=== PATIENT | male | born 1960 | race Caucasian/White ===

== ENCOUNTER 2017-05-20 15:22 | Emergency (ER) | payer MEDICARE ==
--- NOTE | 2017-05-20 15:42 | Emergency Department Record ---
History of Present Illness - General Chief Complaint: Ankle/Foot Injury Stated Complaint: LOW BLOOD SUGAR Time Seen by Provider: 05/20/17 15:31 Source: Patient, RN notes reviewed Mode of Arrival: Ambulatory - History of Present Illness Initial Comments: patient states he doesn't have his lantus insulin because of insurance problems and his toe left great toe toenail fell off 5 days ago and he has onychymocosis and 2 days ago his left great toe drained pus and blood spontaneously and now he has a red streak into his footup to his ankle. the bottom of his left great toe volar pad has a black eschar and skin looks like a blister drained. Patients feet are numb from his diabetes and he used his short acting insulin 14 units prior to coming to the hospital at 3 pm . patient is checking his sugar every 3-4 hours and covering with short acting insulin novolog. Onset/Timin -: Days(s) Type of Injury: Laceration Improves With: Nothing Worsens With: Nothing - Related Data Home Medications Medication Instructions Recorded Confirmed Last Taken Insulin Aspart [Novolog] 1 unit SQ TID 05/20/17 05/20/17 Unknown Allergies Allergy/AdvReac Type Severity Reaction Status Date / Time No Known Allergies Allergy Unverified 05/20/17 14:54 Travel Screening - Travel/Exposure Within Last 30 Days Have you traveled within the last 30 days?: No Review of Systems Reviewed: No additional complaints except as noted below Constitutional: Reports: As per HPI. Denies: Chills, Fever, Malaise, Night sweats, Weakness, Weight change Eyes: Reports: As per HPI. Denies: Eye discharge, Eye pain, Photophobia, Vision change ENT: Reports: As per HPI. Denies: Congestion, Dental pain, Ear pain, Epistaxis , Hearing loss, Throat pain Respiratory: Reports: As per HPI. Denies: Cough, Dyspnea, Hemoptysis, Stridor, Wheezes Cardiovascular: Reports: As per HPI. Denies: Arrhythmia, Chest pain, Dyspnea on exertion, Edema, Murmurs, Orthopnea, Palpitations, Paroxysmal nocturnal dyspnea, Rheumatic Fever, Syncope Endocrine: Reports: As per HPI. Denies: Fatigue, Heat or cold intolerance, Polydipsia, Polyuria Gastrointestinal: Reports: As per HPI. Denies: Abdominal pain, Constipation, Diarrhea, Hematemesis, Hematochezia, Melena, Nausea, Vomiting Genitourinary: Reports: As per HPI. Denies: Dysuria, Frequency, Hematuria, Incontinence, Retention, Testicular pain, Testicular mass, Urgency Musculoskeletal: Reports: As per HPI. Denies: Arthralgia, Back pain, Gout, Joint swelling, Myalgia, Neck pain Skin: Reports: As per HPI, Other (toe is blistered and ulcerated on the volar pad of the left great toe). Denies: Bruising, Change in color, Change in hair/ nails, Lesions, Pruritus, Rash Neurological: Reports: As per HPI. Denies: Abnormal gait, Confusion, Headache, Numbness, Paresthesias, Seizure, Tingling, Tremors, Vertigo, Weakness Psychiatric: Reports: As per HPI. Denies: Anxiety, Auditory hallucinations, Depression, Homicidal thoughts, Suicidal thoughts, Visual hallucinations Hematological/Lymphatic: Reports: As per HPI. Denies: Anemia, Blood Clots, Easy bleeding, Easy bruising, Swollen glands Past Medical History - SOCIAL HISTORY Smoking Status: Never smoker Alcohol Use: Occasional Drug Use: Rare Drug Use Detail:: Marijuana - RESPIRATORY Hx Respiratory Disorders: No - CARDIOVASCULAR Hx Cardio Disorders: No - NEURO Hx Neuro Disorders: No - GI Hx GI Disorders: No - Hx Genitourinary Disorders: No - ENDOCRINE Hx Endocrine Disorders: Yes Hx Diabetes: Yes (DM2) - PSYCH Hx Psych Problems: No - HEMATOLOGY/ONCOLOGY Hx Hematology/Oncology Disorders: No Family Medical History Any Significant Family History?: No Physical Exam - General General Appearance: Alert, Oriented x3, Cooperative, No acute distress - Head Head exam: Normal inspection - Eye Eye exam: Normal appearance, PERRL Pupils: Normal accommodation - ENT ENT exam: Normal exam, Mucous membranes moist, Normal external ear exam, Normal orophraynx, TM's normal bilaterally Ear exam: Normal external inspection. negative: External canal tenderness Nasal Exam: Normal inspection. negative: Discharge, Sinus tenderness Mouth exam: Normal external inspection, Tongue normal Teeth exam: Normal inspection. negative: Dental caries Throat exam: Normal inspection. negative: Tonsillar erythema, Tonsillar exudate - Neck Neck exam: Normal inspection, Full ROM. negative: Tenderness - Respiratory Respiratory exam: Normal lung sounds bilaterally. negative: Respiratory distress - Cardiovascular Cardiovascular Exam: Regular rate, Normal rhythm, Normal heart sounds - GI/Abdominal GI/Abdominal exam: Soft, Normal bowel sounds. negative: Tenderness - Rectal Rectal exam: Deferred - exam: Deferred - Extremities Extremities exam: Full ROM, Normal capillary refill, Other (black eschar on the bottom of the left great toe). negative: Tenderness - Back Back exam: Reports: Normal inspection, Full ROM. Denies: Muscle spasm, Rash noted, Tenderness - Neurological Neurological exam: Alert, Normal gait, Oriented X3, Reflexes normal - Psychiatric Psychiatric exam: Normal affect, Normal mood - Skin Skin exam: Dry, Intact, Normal color, Warm Course discussed case with Dr Lewis and will transfer for infectious disease , ortho or podiatry for his left great toe Medical Decision Making - Data Complexity MDM Data: X-Ray Ordered and/or Reviewed (loose calcium tip of the toe,rule out osteomyletis) - Lab Data Result diagrams: 05/20/17 16:25 05/20/17 16:05 Disposition Clinical Impression: Cellulitis of great toe, left Diabetes mellitus Qualifiers: Diabetes mellitus type: type 2 Diabetes mellitus complication status: with hyperglycemia Diabetes mellitus watermaster insulin use: with watermaster use Qualified Code(s): E11.65 - Type 2 diabetes mellitus with hyperglycemia Osteomyelitis Qualifiers: Osteomyelitis type: acute hematogenous Osteomyelitis location: foot Laterality : left Qualified Code(s): M86.072 - Acute hematogenous osteomyelitis, left ankle and foot Disposition: Acute Care Hospital Transfer Condition: (2) Stable Forms: Patient Portal Access Time of Disposition: 17:06 Quality - Quality Measures Quality Measures: N/A - Blood Pressure Screening Does Patient Have Any of the Following: Active Dx of HTN Blood Pressure Classification: Normal BP Reading Systolic Measurement: 117 Diastolic Measurement: 70 Screening for High Blood Pressure: Patient Exclusion, Hx of HTN [G9744]
[2017-05-20] MEDS ORDERED: 0.9 % SODIUM CHLORIDE 1000ML 1,000 ML IV PRN (15:45)
[2017-05-20] MEDS ORDERED: CLINDAMYCIN 600MG/50ML PREMIX 600 MG/50 ML BAG IVPB ONE (15:50)
[2017-05-20 16:31] LABS: BASO % 0.4 % (0-6); EOS % 5.4 % (0-6); GRAN % 65.1 % (47-80); HEMATOCRIT 37.2 % (42.0-52.0); HEMOGLOBIN 12.1 gm/dl (14.0-18.0); LYMPH % 20.4 % (16-45); MEAN CELL VOLUME 86.7 fl (81-97); MEAN CORPUSCULAR HEMOGLOBIN 28.2 pg (27-33); MEAN CORPUSCULAR HGB CONC 32.5 g/dl (32-36); MEAN PLATELET VOLUME 10.3 fl (7.4-10.4); MONO % 8.7 % (0-9); PLATELET COUNT 369 K/uL (130-400); RED BLOOD COUNT 4.29 M/uL (4.40-5.70); RED CELL DISTRIBUTION WIDTH 13.3 % (11.5-14.5); WHITE BLOOD COUNT W/O DIFF 9.4 K/uL (4.2-12.2)
[2017-05-20 16:41] LABS: BLOOD UREA NITROGEN 19 mg/dL (6-20); C-REACTIVE PROTEIN 3.8 mg/dL (<0.5); EST GLOMERULAR FILTRATION RATE > 60 mL/min
[2017-05-20 16:51] LABS: GLUCOSE,RANDOM 491 mg/dL (74-109)
--- NOTE | 2017-05-21 11:50 | RADIOLOGY REPORT ---
DATE: 05/20/2017 at 4:35 p.m. EXAM: LEFT GREAT TOE. HISTORY: Toe infection. TECHNIQUE: Three views of the left great toe. COMPARISON: None. FINDINGS: There is a slightly curvilinear wire-like density in the soft tissues of the tip of the great toe along the plantar surface consistent with a foreign body of uncertain age or etiology. Clinical correlation is suggested. Mild degenerative arthritis of the first metatarsophalangeal joint. No definite acute fracture or destructive lesion involving the left great toe evident. There is probably some soft tissue swelling present. IMPRESSION: 1. CURVILINEAR WIRE-LIKE FOREIGN BODY ABOUT 9.0 MM IN LENGTH IN THE SOFT TISSUES AT THE TIP OF THE GREAT TOE. CLINICAL CORRELATION IS SUGGESTED DESCRIBED ABOVE. 2. SOME SOFT TISSUE SWELLING. 3. MILD DEGENERATIVE ARTHRITIS AT THE FIRST METATARSOPHALANGEAL JOINT. JOB NUMBER: [id number] MTDD
== END 2017-05-20 17:38 | disposition short-term general hospital (02) ==
LOC: ER 15:22
DX: L03.032 Cellulitis of left toe (principal); M86.172 Other acute osteomyelitis, left ankle and foot; E11.65 Type 2 diabetes mellitus with hyperglycemia; E11.40 Type 2 diabetes mellitus with diabetic neuropathy, unspecified; Z79.4 Long term (current) use of insulin
CPT/HCPCS: 73660; 80048; 85025; 86140; 96374; 99283; 99284

== ENCOUNTER 2017-12-20 11:11 | Inpatient (IN) | payer MEDICARE ==
[2017-12-20] MEDS ORDERED: HUMULIN R 100 UNIT/ML VIAL SC ONE (11:12)
[2017-12-20] MEDS ORDERED: 0.9 % SODIUM CHLORIDE 1,000 ML BAG IV ONE ×2 (11:23→12:11)
[2017-12-20] MEDS ORDERED: ONDANSETRON HCL IV 4 MG/2 ML VIAL IVP ONE (11:23)
--- NOTE | 2017-12-20 11:29 | Emergency Department Record ---
History of Present Illness - General Chief complaint: Vomiting Stated complaint: VOMITING Time Seen by Provider: 12/20/17 11:13 Source: Patient Mode of Arrival: Ambulatory Limitations: No limitations - History of Present Illness Initial comments: 57 yo male presents with nausea and vomiting any time he tries to eat food. The onset was Tuesday morning. He woke then with mild nausea. As soon as he tried to eat breakfast he developed nausea and vomiting. Since then he has been able to keep some fluids down buy as soon as he eats or tries to eat food he vomits. No fever. No diarrhea. He has had bowel movements. No chest pain , shortness of breath, cough, swelling, blood in vomit or stools. He denies any history of abdominal surgery. This morning his symptoms seemed somewhat improved but then he tried to eat and vomited. He states he does feel hungry but even the thought of food makes him vomit. He had a 12 noon appointment at the [facility] but vomited so he was directed to the ED. MD complaint: Nausea, Vomiting -: Days(s) (3) Description of Vomiting: Watery Description of Diarrhea: Water Location: Epigastric Severity: Moderate Quality: Constant Consistency: Constant Improves with: None Worsens with: Eating Associated Symptoms: Loss of appetite, Nausea/vomiting - Related Data Allergies Allergy/AdvReac Type Severity Reaction Status Date / Time No Known Allergies Allergy Unverified 06/27/17 12:15 Review of Systems Constitutional: Reports: Malaise, Weakness. Denies: Chills, Fever Eyes: Denies: Eye discharge, Eye pain, Photophobia, Vision change ENT: Denies: Congestion, Throat pain Respiratory: Denies: Cough, Dyspnea, Hemoptysis, Stridor Cardiovascular: Denies: Chest pain, Dyspnea on exertion, Edema, Palpitations, Syncope Endocrine: Reports: Fatigue. Denies: Polydipsia, Polyuria Gastrointestinal: Reports: Abdominal pain, Nausea, Vomiting. Denies: Constipation, Hematemesis, Hematochezia, Melena Genitourinary: Denies: Dysuria, Frequency, Hematuria Musculoskeletal: Denies: Arthralgia, Back pain, Joint swelling, Myalgia, Neck pain Skin: Denies: Bruising, Change in color, Rash Neurological: Reports: Headache (mild currently). Denies: Numbness, Tremors, Vertigo, Weakness Psychiatric: Denies: Anxiety Hematological/Lymphatic: Denies: Easy bleeding, Easy bruising, Swollen glands Past Medical History - SOCIAL HISTORY Smoking Status: Never smoker Drug Use: Rare Drug Use Detail:: Marijuana - RESPIRATORY Hx Respiratory Disorders: No - CARDIOVASCULAR Hx Cardio Disorders: No - NEURO Hx Neuro Disorders: No - GI Hx GI Disorders: No - Hx Genitourinary Disorders: No - ENDOCRINE Hx Endocrine Disorders: Yes Hx Diabetes: Yes (DM2) - PSYCH Hx Psych Problems: No - HEMATOLOGY/ONCOLOGY Hx Hematology/Oncology Disorders: No Physical Exam - General General Appearance: Alert, Oriented x3, Cooperative, No acute distress Limitations: No limitations - Head Head exam: Normal inspection - Eye Eye exam: Normal appearance, PERRL. negative: Conjunctival injection, Periorbital swelling, Scleral icterus - ENT ENT exam: Normal exam, Mucous membranes dry, Normal orophraynx Ear exam: Normal external inspection Nasal Exam: Normal inspection Mouth exam: Normal external inspection Teeth exam: Normal inspection Throat exam: Normal inspection - Neck Neck exam: Normal inspection, Full ROM. negative: Lymphadenopathy, Tenderness - Respiratory Respiratory exam: Normal lung sounds bilaterally. negative: Respiratory distress - Cardiovascular Cardiovascular Exam: Regular rate, Normal rhythm, Normal heart sounds - GI/Abdominal GI/Abdominal exam: Soft, Tenderness (mild epigastric tenderness). negative: Distended, Guarding, Rebound, Rigid - Rectal Rectal exam: Deferred - exam: Deferred - Extremities Extremities exam: Normal inspection, Full ROM, Normal capillary refill. negative: Pedal edema, Tenderness - Back Back exam: Denies: CVA tenderness (R), CVA tenderness (L) - Neurological Neurological exam: Alert, Oriented X3 - Psychiatric Psychiatric exam: Normal affect, Normal mood - Skin Skin exam: Dry, Intact, Normal color, Warm. negative: Cyanosis, Diaphoretic, Erythema, Mottled Course - Reevaluation(s) Reevaluation #1: 12/20/17 11:55 The CBC was reviewed. WBC is 13 The pH is normal at 7.40 12/20/17 12:02 The CMP and Lipase were reviewed sodium is 129 potassium 5.2 HCO3 is low at 15 AG is 31 Glucose is 321 BUN is 26 CR is 1.3 with a baseline of 1-1.1 Lipase is normal 12/20/17 12:08 On recheck the patient denies any pain. His abdomen is very soft and is not tender on palpation. I explained that he is dehydrated with electrolyte abnormalities. His pH is normal so he is not acidotic at this point but clearly dehydrated with abnormal HCO3, AG and Acetone. 12/20/17 12:10 12/20/17 12:14 The case was discussed with Caroline Aldrich of the family medicine service The patient will be admitted for hydrate, nausea control, electrolyte and glucose monitoring. Medical Decision Making - Lab Data Result diagrams: 12/20/17 11:35 12/20/17 11:35 Disposition Disposition: Admit Clinical Impression: Dehydration, Hyperglycemia, Hyponatremia, Hyperkalemia Disposition: Still a Patient at [facility] Decision to Admit: Admit from ER Decision to Admit Date: 12/20/17 Decision to Admit Time: 12:05 Condition: (1) Good Forms: Patient Portal Access Time of Disposition: 12:05 Quality - Quality Measures Quality Measures: N/A - Blood Pressure Screening Does Patient Have Any of the Following: No Blood Pressure Classification: Normal BP Reading Systolic Measurement: 106 Diastolic Measurement: 65 Screening for High Blood Pressure: < Normal BP, F/U Not Required > [G8783]
[2017-12-20 11:39] LABS: BASO % 0.4 % (0-6); EOS % 0.2 % (0-6); GRAN % 74.8 % (47-80); HEMATOCRIT 42.5 % (42.0-52.0); HEMOGLOBIN 14.2 gm/dl (14.0-18.0); LYMPH % 18.4 % (16-45); MEAN CELL VOLUME 86.4 fl (81-97); MEAN CORPUSCULAR HEMOGLOBIN 28.9 pg (27-33); MEAN CORPUSCULAR HGB CONC 33.4 g/dl (32-36); MEAN PLATELET VOLUME 10.6 fl (7.4-10.4); MONO % 6.2 % (0-9); PLATELET COUNT 377 K/uL (130-400); RED BLOOD COUNT 4.92 M/uL (4.40-5.70); RED CELL DISTRIBUTION WIDTH 13.9 % (11.5-14.5); WHITE BLOOD COUNT W/O DIFF 13.1 K/uL (4.2-12.2)
[2017-12-20 11:53] LABS: BLOOD UREA NITROGEN 26 mg/dL (6-20)
[2017-12-20 11:54] LABS: CREATININE 1.3 mg/dL (0.7-1.2); EST GLOMERULAR FILTRATION RATE > 60 mL/min; TOTAL PROTEIN 7.6 g/dL (6.6-8.7)
[2017-12-20 11:56] LABS: GLUCOSE,RANDOM 321 mg/dL (74-109)
[2017-12-20 11:59] LABS: ALB/GLOB RATIO 1.5 (1.1-1.8); ALBUMIN 4.6 g/dL (4.0-5.0); ALKALINE PHOSPHATASE 96 U/L (40-129); ALT/SGPT 12 U/L (<41); AST/SGOT 15 U/L (10.0-50.0); LIPASE 10 U/L (13-60)
[2017-12-20 12:04] LABS: ACETONE,SERUM POSITIVE (NEGATIVE)
[2017-12-20] MEDS ORDERED: HUMULIN R 100 UNIT/ML VIAL SQ ONE (12:11)
[2017-12-20] MEDS ORDERED: ONDANSETRON HCL IV 4 MG/2 ML VIAL IVP PRN (13:45)
[2017-12-20] MEDS ORDERED: ACETAMINOPHEN 500 MG TABLET PO PRN (13:45)
[2017-12-20] MEDS ORDERED: PNEUM 23-VAL ADULT IM ONE (14:00)
[2017-12-20] MEDS ORDERED: PNEUM 13-VAL/PF 0.5 ML IM ONE (14:00)
[2017-12-20 14:21] LABS: BLOOD UREA NITROGEN 25 mg/dL (6-20); CREATININE 1.2 mg/dL (0.7-1.2); EST GLOMERULAR FILTRATION RATE > 60 mL/min; GLUCOSE,RANDOM 297 mg/dL (74-109)
[2017-12-20] MEDS: 0.9 % SODIUM CHLORIDE 1000ML 1,000 ML IV PRN ×2 (14:30→21:43)
[2017-12-20] MEDS: GABAPENTIN 300 MG CAPSULE PO SCH ×2 (17:29→21:55)
[2017-12-20] MEDS: HUMULIN R 100 UNIT/ML VIAL SQ SCH (17:33)
--- NOTE | 2017-12-20 22:47 | History & Physical ---
History of Present Illness - Date of Service Date of Service for History & Physical: 12/20/17 - History of Present Illness Admitting Diagnosis: dehydration, hyperglycemia, hyponatremia, vomiting History of Present Illness: Mr. Colunga is a 57 year-old male who presented to the ED the afternoon of 12/20/17 with complaint of nausea and vomiting. His symptoms began 3 days ago. He woke up Tuesday morning with mild nausea. As soon as he tried to eat breakfast he developed nausea and vomiting. Since then he has been able to keep some fluids down but as soon as he eats or tries to eat food he vomits. No fever. No diarrhea. He has had bowel movements unchanged fro his norm. No chest pain, shortness of breath, cough, swelling, blood in vomit or stools. He denies any history of abdominal surgery. This morning his symptoms seemed somewhat improved but then he tried to eat and vomited. He states he does feel hungry but even the thought of food makes him vomit. He was supposed to have his diabetes appt. today with Erika Brown NP, and he was advised to go to the ED. Past medical history includes insulin-dependent diabetes mellitus and occasional marijuana use. In the ED, his vital signs were stable. His CBC revealed a WBC of 13. CMP revealed a pH of 7.4, Na of 129, K of 5.2, HC03 of 15, AG of 31, glucose of 321 , BUN 26, and creatinine of 1.3 (baseline of 1-1.1). He continued to deny pain , abdomen was soft and nontender to palpation. He was admitted for dehydration , hyperglycemia, hyponatremia, and hyperkalemia. Planning IV fluids, antiemetics, and lab monitoring. 12/20/17 1630: Pt. is resting comfortably in bed. He reports feeling much improved at this time. He continues to deny abdominal pain. He states that he is hungry and interested in trying some jello. Plan to advance ADA diet as tolerated. Will continue IV hydration and lab monitoring- will check A1C with am labs. Travel Screening - Travel/Exposure Within Last 30 Days Have you traveled within the last 30 days?: No - Travel/Exposure Within Last Year Have you traveled outside the [place] in the last year?: No - Additonal Travel Details Have you been exposed to anyone with a communicable illness?: No - Travel Symptoms Symptom Screening: None Review of Systems Constitutional: Reports: Malaise, Weakness. Denies: Chills, Fever Eyes: Denies: Eye discharge, Eye pain, Photophobia, Vision change ENT: Denies: Congestion, Throat pain Respiratory: Denies: Cough, Dyspnea, Hemoptysis, Stridor Cardiovascular: Denies: Chest pain, Dyspnea on exertion, Edema, Palpitations, Syncope Endocrine: Reports: Fatigue. Denies: Polydipsia, Polyuria Gastrointestinal: Reports: Abdominal pain, Nausea, Vomiting. Denies: Constipation, Hematemesis, Hematochezia, Melena Genitourinary: Denies: Dysuria, Frequency, Hematuria Musculoskeletal: Denies: Arthralgia, Back pain, Joint swelling, Myalgia, Neck pain Skin: Denies: Bruising, Change in color, Rash Neurological: Reports: Headache (mild currently). Denies: Numbness, Tremors, Vertigo, Weakness Psychiatric: Denies: Anxiety Hematological/Lymphatic: Denies: Easy bleeding, Easy bruising, Swollen glands Past Medical History - SOCIAL HISTORY Smoking Status: Never smoker Alcohol Use: Occasional Drug Use: Occasional Drug Use Detail:: Marijuana - RESPIRATORY Hx Respiratory Disorders: No - CARDIOVASCULAR Hx Cardio Disorders: No - NEURO Hx Neuro Disorders: No - GI Hx GI Disorders: No - Hx Genitourinary Disorders: No - ENDOCRINE Hx Endocrine Disorders: Yes Hx Diabetes: Yes (DM2) - PSYCH Hx Psych Problems: No - HEMATOLOGY/ONCOLOGY Hx Hematology/Oncology Disorders: No Family Medical History Any Significant Family History?: No H&P Meds/Allergies - Allergies Allergies: Allergies Allergy/AdvReac Type Severity Reaction Status Date / Time No Known Allergies Allergy Unverified 06/27/17 12:15 - Active Medications Active Medications: Current Medications Acetaminophen (Tylenol 500mg Tab) 1,000 mg PO Q6H PRN PRN Reason: PAIN/TEMP Aspirin (Ecotrin (Ec)) 81 mg PO DAILY CATHERINE Atorvastatin Calcium (Lipitor) 10 mg PO DAILY CATHERINE Gabapentin (Neurontin) 300 mg PO TID CATHERINE Last Admin: 12/20/17 21:55 Dose: 300 mg Sodium Chloride () 1,000 mls @ 125 mls/hr IV .Q8H PRN PRN Reason: LARGE VOLUME IV Last Admin: 12/20/17 21:43 Dose: 125 mls/hr Insulin Human Regular (Humulin R) 1 unit SQ TIDAC [facility]; Protocol Last Admin: 12/20/17 17:33 Dose: 2 unit Ondansetron HCl (Zofran) 4 mg IVP Q4H PRN PRN Reason: NAUSEA Physical Exam - Vital Signs Vital Signs: Vital Signs - Last 24 Hrs Temp Pulse Pulse Resp BP BP Pulse Ox 12/20/17 16:21 97.7 F 95 H 18 138/75 100 12/20/17 15:41 95 H 18 12/20/17 13:45 97.5 F L 95 H 18 140/77 100 12/20/17 12:55 97.4 F L 88 18 134/50 99 12/20/17 11:14 97.8 F 100 H 24 106/65 100 - General General Appearance: Alert, Oriented x3, Cooperative, No acute distress Limitations: No limitations - Head Head exam: Normal inspection - Eye Eye exam: Normal appearance, PERRL. negative: Conjunctival injection, Periorbital swelling, Scleral icterus - ENT ENT exam: Normal exam, Mucous membranes dry, Normal orophraynx Ear exam: Normal external inspection Nasal Exam: Normal inspection Mouth exam: Normal external inspection Teeth exam: Normal inspection Throat exam: Normal inspection - Neck Neck exam: Normal inspection, Full ROM. negative: Lymphadenopathy, Tenderness - Respiratory Respiratory exam: Normal lung sounds bilaterally. negative: Respiratory distress - Cardiovascular Cardiovascular Exam: Regular rate, Normal rhythm, Normal heart sounds - GI/Abdominal GI/Abdominal exam: Soft. negative: Distended, Guarding, Rebound, Rigid, Tenderness - Rectal Rectal exam: Deferred - exam: Deferred - Extremities Extremities exam: Normal inspection, Full ROM, Normal capillary refill. negative: Pedal edema, Tenderness - Back Back exam: Denies: CVA tenderness (R), CVA tenderness (L) - Neurological Neurological exam: Alert, Oriented X3 - Psychiatric Psychiatric exam: Normal affect, Normal mood - Skin Skin exam: Dry, Intact, Normal color, Warm. negative: Cyanosis, Diaphoretic, Erythema, Mottled Results - Labs Result Diagrams: 12/20/17 11:35 12/20/17 14:00 Labs Last 24 Hours: Laboratory Results - last 24 hr 12/20/17 12/20/17 12/20/17 11:35 11:35 14:00 WBC 13.1 H RBC 4.92 Hgb 14.2 Hct 42.5 MCV 86.4 MCH 28.9 MCHC 33.4 RDW 13.9 Plt Count 377 MPV 10.6 H Gran % 74.8 Lymphocytes % 18.4 Monocytes % 6.2 Eosinophils % 0.2 Basophils % 0.4 VBG pH 7.40 Sodium 129 L 131 L Potassium 5.2 H 4.9 H Chloride 83 L 90 L Carbon Dioxide 15.0 L 13.0 L Anion Gap 31.0 H 28.0 H BUN 26 H 25 H Creatinine 1.3 H 1.2 Estimated GFR > 60 > 60 POC Glucose Random Glucose 321 H 297 H Calcium 10.1 H 8.7 Total Bilirubin 0.80 AST 15 ALT 12 Alkaline Phosphatase 96 Total Protein 7.6 Albumin 4.6 Globulin 3.0 Albumin/Globulin Ratio 1.5 Lipase 10 L Acetone, Qual Positive 12/20/17 17:00 WBC RBC Hgb Hct MCV MCH MCHC RDW Plt Count MPV Gran % Lymphocytes % Monocytes % Eosinophils % Basophils % VBG pH Sodium Potassium Chloride Carbon Dioxide Anion Gap BUN Creatinine Estimated GFR POC Glucose Cancelled Random Glucose Calcium Total Bilirubin AST ALT Alkaline Phosphatase Total Protein Albumin Globulin Albumin/Globulin Ratio Lipase Acetone, Qual VTE H&P Assessment - Risk for VTE Risk for VTE: Yes Risk Level: Very Low Risk Assessment Date: 12/20/17 Risk Assessment Time: 22:48 VTE Orders Placed or Will Be Placed: Yes Plan - Inpatient Certification Inpatient Certification: Admit to inpatient care: Based on my medical assessment, after consideration of patient's risk factors (age, co-morbidities and patient presenting symptoms and acuity), I expect that this patient will remain in the hospital greater than or equal to two midnights and that the services needed warrant inpatient care because: Patient Risk Factors: [uncontrolled IDDM] Estimated length of stay: [48-96 hours] The patient may reasonably be expected to be discharged or transferred to a hospital within 96 hours after admission to [facility]. Services needed: [IV hydration, antiemetics, lab monitoring] Post hospital care (if known): [] I certify that my determination is in accordance with my understanding of Medicare requirements for reasonable and necessary inpatient services. 12/20/17 22:48 - Detailed Diagnosis and Plan (1) Dehydration Current Visit: Yes Status: Acute Base Code: E86.0 - DEHYDRATION Comment: : -Dehydration secondary to nausea and vomiting for 2.5 days -Will continue IV hydration -CBC and CMP ordered for tomorrow morning to reassess hyponatremia and hyperkalemia -Pt. is now tolerating advanced diet (ADA) with no nausea/vomiting (2) Hyperglycemia Current Visit: Yes Status: Acute Base Code: R73.9 - HYPERGLYCEMIA, UNSPECIFIED Comment: 12/20/17: -Glucose 321 upon admission -SS insulin ordered -Will continue to monitor, A1C also ordered for am labs tomorow (3) At risk for deep venous thrombosis Current Visit: Yes Status: Acute Base Code: Z91.89 - OTH PERSONAL RISK FACTORS, NOT ELSEWHERE CLASSIFIED Comment: 12/20/17: -40mg SC lovenox will be ordered for DVT prophylaxis if stay greater than 24 hours (4) Full code status Current Visit: Yes Status: Acute Base Code: Z78.9 - OTHER SPECIFIED HEALTH STATUS Comment: 12/20/17: -Pt. is a full code
[2017-12-21] MEDS ORDERED: PNEUM 23-VAL ADULT IM ONE (06:11)
[2017-12-21 06:59] LABS: BASO % 0.4 % (0-6); EOS % 1.8 % (0-6); GRAN % 62.1 % (47-80); HEMATOCRIT 37.4 % (42.0-52.0); LYMPH % 27.8 % (16-45); MEAN CELL VOLUME 88.2 fl (81-97); MEAN CORPUSCULAR HEMOGLOBIN 28.3 pg (27-33); MEAN CORPUSCULAR HGB CONC 32.1 g/dl (32-36); MEAN PLATELET VOLUME 10.8 fl (7.4-10.4); MONO % 7.9 % (0-9); PLATELET COUNT 248 K/uL (130-400); RED BLOOD COUNT 4.24 M/uL (4.40-5.70)
[2017-12-21 07:19] LABS: ALB/GLOB RATIO 1.6 (1.1-1.8); ALBUMIN 3.6 g/dL (4.0-5.0); ALKALINE PHOSPHATASE 73 U/L (40-129); ALT/SGPT 11 U/L (<41); AST/SGOT 12 U/L (10.0-50.0); BLOOD UREA NITROGEN 19 mg/dL (6-20); CREATININE 1.2 mg/dL (0.7-1.2); EST GLOMERULAR FILTRATION RATE > 60 mL/min; GLUCOSE,RANDOM 387 mg/dL (74-109); TOTAL PROTEIN 5.8 g/dL (6.6-8.7)
[2017-12-21] MEDS: HUMULIN R 100 UNIT/ML VIAL SQ SCH ×3 (08:04→17:44)
[2017-12-21] MEDS: ATORVASTATIN 20 MG TABLET PO SCH (09:25)
[2017-12-21] MEDS: ASPIRIN 81 MG TABEC PO SCH (09:25)
[2017-12-21] MEDS: GABAPENTIN 300 MG CAPSULE PO SCH ×3 (09:25→22:40)
[2017-12-21] MEDS: METOCLOPRAMIDE 10 MG TABLET PO SCH ×3 (10:56→22:40)
[2017-12-21] MEDS: CALCIUM CARBONATE 500 MG TAB.CHEW PO SCH ×4 (10:56→22:40)
--- NOTE | 2017-12-21 12:56 | Physician Progress Note ---
Subjective - Date Date of Physician Progress Note: 12/21/17 - Subjective Subjective Comment: 12/21/17 1000: Pt. reported worsening nausea and some vomiting this morning prior to eating breakfast. He states that his nausea came on very intensely and then he vomited a small amount of white-foamy mucus. He states that water alone has not been worsening his nausea. Plan to r/o gastroparesis- will try reglan 10mg qid. GI consulted- will be in specialty clinic tomorrow morning. Labs slightly improved from yesterday, BUN and creatinine returned to normal limits. Labs ordered for 1400, will recheck cbc, cmp, and added tsh and b12. Will continue IV fluids and highly recommended pt. to try small frequent meals instead of few large meals. Objective - Vital Signs Vital Signs: Vital Signs - Last 24 Hrs Temp Pulse Pulse Resp BP BP Pulse Ox 12/21/17 11:37 97.9 F 85 18 121/67 99 12/21/17 09:00 50 L 16 12/21/17 03:44 97.7 F 50 L 16 181/80 99 12/21/17 00:00 99.1 F 85 16 134/79 98 12/20/17 21:00 16 12/20/17 16:21 97.7 F 95 H 18 138/75 100 12/20/17 15:41 95 H 18 12/20/17 13:45 97.5 F L 95 H 18 140/77 100 12/20/17 12:55 97.4 F L 88 18 134/50 99 - General General Appearance: Alert, Oriented x3, Cooperative, No acute distress Limitations: No limitations - Head Head exam: Normal inspection - Eye Eye exam: Normal appearance, PERRL. negative: Conjunctival injection, Periorbital swelling, Scleral icterus - ENT ENT exam: Normal exam, Mucous membranes dry, Normal orophraynx Ear exam: Normal external inspection Nasal Exam: Normal inspection Mouth exam: Normal external inspection Teeth exam: Normal inspection Throat exam: Normal inspection - Neck Neck exam: Normal inspection, Full ROM. negative: Lymphadenopathy, Tenderness - Respiratory Respiratory exam: Normal lung sounds bilaterally. negative: Respiratory distress - Cardiovascular Cardiovascular Exam: Regular rate, Normal rhythm, Normal heart sounds - GI/Abdominal GI/Abdominal exam: Soft. negative: Distended, Guarding, Rebound, Rigid, Tenderness - Rectal Rectal exam: Deferred - exam: Deferred - Extremities Extremities exam: Normal inspection, Full ROM, Normal capillary refill. negative: Pedal edema, Tenderness - Back Back exam: Denies: CVA tenderness (R), CVA tenderness (L) - Neurological Neurological exam: Alert, Oriented X3 - Psychiatric Psychiatric exam: Normal affect, Normal mood - Skin Skin exam: Dry, Intact, Normal color, Warm. negative: Cyanosis, Diaphoretic, Erythema, Mottled Assessment and Plan - Assessment and Plan (1) Dehydration Current Visit: Yes Status: Acute Base Code: E86.0 - DEHYDRATION Comment: : -Dehydration secondary to nausea and vomiting for 2.5 days -Will continue IV hydration -CBC and CMP ordered for tomorrow morning to reassess hyponatremia and hyperkalemia -Pt. is now tolerating advanced diet (ADA) with no nausea/vomiting (2) Hyperglycemia Current Visit: Yes Status: Acute Base Code: R73.9 - HYPERGLYCEMIA, UNSPECIFIED Comment: 12/20/17: -Glucose 321 upon admission -SS insulin ordered -Will continue to monitor, A1C also ordered for am labs tomorow (3) At risk for deep venous thrombosis Current Visit: Yes Status: Acute Base Code: Z91.89 - OTH PERSONAL RISK FACTORS, NOT ELSEWHERE CLASSIFIED Comment: 12/20/17: -40mg SC lovenox will be ordered for DVT prophylaxis if stay greater than 24 hours (4) Full code status Current Visit: Yes Status: Acute Base Code: Z78.9 - OTHER SPECIFIED HEALTH STATUS Comment: 12/20/17: -Pt. is a full code Results - Labs Result Diagrams: 12/21/17 06:05 12/21/17 06:05 Labs Last 24 Hours: Laboratory Results - last 24 hr 12/20/17 12/20/17 12/20/17 14:00 17:00 22:02 WBC RBC Hgb Hct MCV MCH MCHC RDW Plt Count MPV Gran % Lymphocytes % Monocytes % Eosinophils % Basophils % Sodium 131 L Potassium 4.9 H Chloride 90 L Carbon Dioxide 13.0 L Anion Gap 28.0 H BUN 25 H Creatinine 1.2 Estimated GFR > 60 POC Glucose Cancelled 230 H Random Glucose 297 H Hemoglobin A1c Calcium 8.7 Total Bilirubin AST ALT Alkaline Phosphatase Total Protein Albumin Globulin Albumin/Globulin Ratio 12/21/17 12/21/17 12/21/17 01:45 06:05 06:05 WBC 9.0 RBC 4.24 L Hgb 12.0 L Hct 37.4 L MCV 88.2 MCH 28.3 MCHC 32.1 RDW 14.0 Plt Count 248 MPV 10.8 H Gran % 62.1 Lymphocytes % 27.8 Monocytes % 7.9 Eosinophils % 1.8 Basophils % 0.4 Sodium Cancelled 132 L Potassium Cancelled 4.9 H Chloride Cancelled 90 L Carbon Dioxide Cancelled 14.0 L Anion Gap Cancelled 28.0 H BUN Cancelled 19 Creatinine Cancelled 1.2 Estimated GFR Cancelled > 60 POC Glucose Random Glucose Cancelled 387 H Hemoglobin A1c Calcium Cancelled 8.2 L Total Bilirubin 0.50 AST 12 ALT 11 Alkaline Phosphatase 73 Total Protein 5.8 L Albumin 3.6 L Globulin 2.2 Albumin/Globulin Ratio 1.6 12/21/17 12/21/17 06:05 11:37 WBC RBC Hgb Hct MCV MCH MCHC RDW Plt Count MPV Gran % Lymphocytes % Monocytes % Eosinophils % Basophils % Sodium Potassium Chloride Carbon Dioxide Anion Gap BUN Creatinine Estimated GFR POC Glucose 273 H Random Glucose Hemoglobin A1c 10.60 H Calcium Total Bilirubin AST ALT Alkaline Phosphatase Total Protein Albumin Globulin Albumin/Globulin Ratio DVT/PE Assessment - Risk for VTE Risk for VTE: No Risk Level: Very Low Risk Assessment Date: 12/20/17 Risk Assessment Time: 22:48 VTE Orders Placed or Will Be Placed: Yes - Active Medicaitons Current Medications: Current Medications Acetaminophen (Tylenol 500mg Tab) 1,000 mg PO Q6H PRN PRN Reason: PAIN/TEMP Aspirin (Ecotrin (Ec)) 81 mg PO DAILY [facility] Last Admin: 12/21/17 09:25 Dose: 81 mg Atorvastatin Calcium (Lipitor) 10 mg PO DAILY [facility] Last Admin: 12/21/17 09:25 Dose: 10 mg Calcium Carbonate/Glycine (Tums) 500 mg PO Q4H [facility] Last Admin: 12/21/17 10:56 Dose: 500 mg Gabapentin (Neurontin) 300 mg PO TID [facility] Last Admin: 12/21/17 09:25 Dose: 300 mg Sodium Chloride () 1,000 mls @ 125 mls/hr IV .Q8H PRN PRN Reason: LARGE VOLUME IV Last Admin: 12/20/17 21:43 Dose: 125 mls/hr Insulin Human Regular (Humulin R) 1 unit SQ TIDAC [facility]; Protocol Last Admin: 12/21/17 12:03 Dose: 8 unit Metoclopramide HCl (Reglan) 10 mg PO QIDACHS [facility] Last Admin: 12/21/17 10:56 Dose: 10 mg Ondansetron HCl (Zofran) 4 mg IVP Q4H PRN PRN Reason: NAUSEA Last Admin: 12/21/17 07:42 Dose: 4 mg AMI Plan - Labs Result Diagrams: 12/21/17 06:05 12/21/17 06:05
[2017-12-21] MEDS: 0.9 % SODIUM CHLORIDE 1000ML 1,000 ML IV PRN ×2 (13:34→23:00)
[2017-12-21 15:31] LABS: ALB/GLOB RATIO 1.8 (1.1-1.8); ALBUMIN 3.6 g/dL (4.0-5.0); ALKALINE PHOSPHATASE 68 U/L (40-129); ALT/SGPT 11 U/L (<41); AST/SGOT 12 U/L (10.0-50.0); BLOOD UREA NITROGEN 18 mg/dL (6-20); CREATININE 1.2 mg/dL (0.7-1.2); EST GLOMERULAR FILTRATION RATE > 60 mL/min; GLUCOSE,RANDOM 257 mg/dL (74-109); TOTAL PROTEIN 5.6 g/dL (6.6-8.7)
[2017-12-22] MEDS: CALCIUM CARBONATE 500 MG TAB.CHEW PO SCH ×3 (06:03→12:22)
[2017-12-22 06:16] LABS: BLOOD UREA NITROGEN 19 mg/dL (6-20); CREATININE 1.2 mg/dL (0.7-1.2); EST GLOMERULAR FILTRATION RATE > 60 mL/min; TOTAL PROTEIN 6.3 g/dL (6.6-8.7)
[2017-12-22 06:18] LABS: ALB/GLOB RATIO 1.5 (1.1-1.8); ALBUMIN 3.8 g/dL (4.0-5.0); ALKALINE PHOSPHATASE 74 U/L (40-129); ALT/SGPT 12 U/L (<41); AST/SGOT 13 U/L (10.0-50.0); CHOLESTEROL 181 mg/dL (<200); HDL CHOLESTEROL 36 mg/dL (40-60); TRIGLYCERIDES 171 mg/dL (<150); VLDL CHOLESTEROL 34 mg/dL (10.00-40.00)
[2017-12-22] MEDS: HUMULIN R 100 UNIT/ML VIAL SQ SCH ×3 (06:19→12:24)
[2017-12-22 06:27] LABS: GLUCOSE,RANDOM 563 mg/dL (74-109)
[2017-12-22] MEDS ORDERED: LEVEMIR FLEXTOUCH 100 UNIT/ML INSULIN PEN SQ ONE (09:02)
[2017-12-22] MEDS: ATORVASTATIN 20 MG TABLET PO SCH (12:20)
[2017-12-22] MEDS: ASPIRIN 81 MG TABEC PO SCH (12:21)
[2017-12-22] MEDS: GABAPENTIN 300 MG CAPSULE PO SCH (12:21)
[2017-12-22] MEDS: METOCLOPRAMIDE 10 MG TABLET PO SCH ×3 (12:21→12:23)
[2017-12-22] MEDS ORDERED: ONDANSETRON 4 MG ODT TABLET SL PRN (13:13)
--- NOTE | 2017-12-22 13:19 | Discharge Summary ---
Providers Discharge Summary Date: 12/22/17 Date of admission: 12/20/17 13:31 Expected Date of Discharge: 12/22/17 Attending physician: CHERIE HAMILTON Primary care physician: Erika Brown N.P. Consults: Consult Orders 12/21/17 12:29 Consult NOW Consulting Provider: ALEIDA HANNON Physician Instructions: Reason For Exam: nausea, vomiting, r/o gastroparesis Physical Exam - Vital Signs Vital Signs: Vital Signs - Last 24 Hrs Temp Pulse Resp BP BP Pulse Ox 12/22/17 12:15 97.9 F 83 18 143/70 100 12/22/17 09:00 98 H 18 12/22/17 04:00 98 H 18 146/76 98 12/21/17 21:00 81 18 12/21/17 20:00 98.7 F 81 18 124/69 97 12/21/17 13:42 97.9 F 121/67 - General General Appearance: Alert, Oriented x3, Cooperative, No acute distress Limitations: No limitations - Head Head exam: Normal inspection - Eye Eye exam: Normal appearance, PERRL. negative: Conjunctival injection, Periorbital swelling, Scleral icterus - ENT ENT exam: Normal exam, Mucous membranes dry, Normal orophraynx Ear exam: Normal external inspection Nasal Exam: Normal inspection Mouth exam: Normal external inspection Teeth exam: Normal inspection Throat exam: Normal inspection - Neck Neck exam: Normal inspection, Full ROM. negative: Lymphadenopathy, Tenderness - Respiratory Respiratory exam: Normal lung sounds bilaterally. negative: Respiratory distress - Cardiovascular Cardiovascular Exam: Regular rate, Normal rhythm, Normal heart sounds - GI/Abdominal GI/Abdominal exam: Soft. negative: Distended, Guarding, Rebound, Rigid, Tenderness - Rectal Rectal exam: Deferred - exam: Deferred - Extremities Extremities exam: Normal inspection, Full ROM, Normal capillary refill. negative: Pedal edema, Tenderness - Back Back exam: Denies: CVA tenderness (R), CVA tenderness (L) - Neurological Neurological exam: Alert, Oriented X3 - Psychiatric Psychiatric exam: Normal affect, Normal mood - Skin Skin exam: Dry, Intact, Normal color, Warm. negative: Cyanosis, Diaphoretic, Erythema, Mottled Hospitalization - Hospitalization Admission Diagnosis: dehydration, hyperglycemia, hyponatremia, vomiting - Problem List/Discharge Diagnosis (1) Dehydration Status: Acute Base Code: E86.0 - DEHYDRATION Comment: 12/22/17: -Dehydration secondary to nausea and vomiting for 3.5 days -Pt. is tolerating clear fluids and labs improved (2) Hyperglycemia Status: Acute Base Code: R73.9 - HYPERGLYCEMIA, UNSPECIFIED Comment: 12/22/17 : -Pt. will resume home diabetes medications for discharge (3) Vomiting Status: Acute Base Code: R11.10 - VOMITING, UNSPECIFIED Comment: 12/22/17: -GI consult and scope this morning- found gastric and duodenal ulcers and esophagitis -Will start 40mg pantoprazole per Dr. Hannon -Will d/c home with zofran prn (4) At risk for deep venous thrombosis Status: Acute Base Code: Z91.89 - OTH PERSONAL RISK FACTORS, NOT ELSEWHERE CLASSIFIED Comment: 12/22/17: -Will not continue antithrombolic therapy post discharge- pt to return to normal level of activity (5) Full code status Status: Acute Base Code: Z78.9 - OTHER SPECIFIED HEALTH STATUS Comment: 12/22: -Pt. is a full code - Disposition Discharge home, self-care - Hospitalization Course Disposition: Home, Self-Care Hospital Course: Mr. Colunga is a 57 year-old male who presented to the ED the afternoon of 12/20/17 with complaint of nausea and vomiting. His symptoms began 3 days ago. He woke up Tuesday morning with mild nausea. As soon as he tried to eat breakfast he developed nausea and vomiting. Since then he has been able to keep some fluids down but as soon as he eats or tries to eat food he vomits. No fever. No diarrhea. He has had bowel movements unchanged fro his norm. No chest pain, shortness of breath, cough, swelling, blood in vomit or stools. He denies any history of abdominal surgery. This morning his symptoms seemed somewhat improved but then he tried to eat and vomited. He states he does feel hungry but even the thought of food makes him vomit. He was supposed to have his diabetes appt. today with Erika Brown NP, and he was advised to go to the ED. Past medical history includes insulin-dependent diabetes mellitus and occasional marijuana use. In the ED, his vital signs were stable. His CBC revealed a WBC of 13. CMP revealed a pH of 7.4, Na of 129, K of 5.2, HC03 of 15, AG of 31, glucose of 321 , BUN 26, and creatinine of 1.3 (baseline of 1-1.1). He continued to deny pain , abdomen was soft and nontender to palpation. He was admitted for dehydration , hyperglycemia, hyponatremia, and hyperkalemia. Planning IV fluids, antiemetics, and lab monitoring. 12/20/17 1630: Pt. is resting comfortably in bed. He reports feeling much improved at this time. He continues to deny abdominal pain. He states that he is hungry and interested in trying some jello. Plan to advance ADA diet as tolerated. Will continue IV hydration and lab monitoring- will check A1C with am labs. 12/21/17: Nausea and vomiting restarted, will consult GI. Reglan 10mg qid started for possible gastroparesis. 12/22/17: Dr. Hannon ([facility]) consulted and EGD performed this morning- found gastric and duodenal ulcers and esophagitis. Biopsy was obtained to test for H. pylori. Per Dr. Hannon, recommend starting 40mg pantoprazole daily and f/u in 6 weeks for repeat EGD to assess healing and screening colonoscopy. Will discharge home this afternoon. Abnormal Labs: Abnormal Lab Results 12/20/17 12/20/17 12/20/17 Range/Units 11:35 11:35 14:00 WBC 13.1 H (4.2-12.2) K/uL RBC (4.40-5.70) M/uL Hgb (14.0-18.0) gm/dl Hct (42.0-52.0) % MPV 10.6 H (7.4-10.4) fl Sodium 129 L 131 L (136-145) mmol/L Potassium 5.2 H 4.9 H (3.4-4.5) mmol/L Chloride 83 L 90 L (98-107) mmol/L Carbon Dioxide 15.0 L 13.0 L (22-29) mmol/L Anion Gap 31.0 H 28.0 H (7-16) BUN 26 H 25 H (6-20) mg/dL Creatinine 1.3 H (0.7-1.2) mg/dL POC Glucose (70-110) mg/dL Random Glucose 321 H 297 H (74-109) mg/dL Hemoglobin A1c (4.0-6.00) % Calcium 10.1 H (8.6-10.0) mg/dL Total Protein (6.6-8.7) g/dL Albumin (4.0-5.0) g/dL Triglycerides (<150) mg/dL LDL Cholesterol [place] (0-100) mg/dL HDL Cholesterol (40-60) mg/dL Lipase 10 L (13-60) U/L 12/20/17 12/21/17 12/21/17 Range/Units 22:02 06:05 06:05 WBC (4.2-12.2) K/uL RBC 4.24 L (4.40-5.70) M/uL Hgb 12.0 L (14.0-18.0) gm/dl Hct 37.4 L (42.0-52.0) % MPV 10.8 H (7.4-10.4) fl Sodium 132 L (136-145) mmol/L Potassium 4.9 H (3.4-4.5) mmol/L Chloride 90 L (98-107) mmol/L Carbon Dioxide 14.0 L (22-29) mmol/L Anion Gap 28.0 H (7-16) BUN (6-20) mg/dL Creatinine (0.7-1.2) mg/dL POC Glucose 230 H (70-110) mg/dL Random Glucose 387 H (74-109) mg/dL Hemoglobin A1c (4.0-6.00) % Calcium 8.2 L (8.6-10.0) mg/dL Total Protein 5.8 L (6.6-8.7) g/dL Albumin 3.6 L (4.0-5.0) g/dL Triglycerides (<150) mg/dL LDL Cholesterol Me[place]urd (0-100) mg/dL HDL Cholesterol (40-60) mg/dL Lipase (13-60) U/L 12/21/17 12/21/17 12/21/17 Range/Units 06:05 11:37 14:15 WBC (4.2-12.2) K/uL RBC (4.40-5.70) M/uL Hgb (14.0-18.0) gm/dl Hct (42.0-52.0) % MPV (7.4-10.4) fl Sodium (136-145) mmol/L Potassium 4.6 H (3.4-4.5) mmol/L Chloride 95 L (98-107) mmol/L Carbon Dioxide 18.0 L (22-29) mmol/L Anion Gap 24.0 H (7-16) BUN (6-20) mg/dL Creatinine (0.7-1.2) mg/dL POC Glucose 273 H (70-110) mg/dL Random Glucose 257 H (74-109) mg/dL Hemoglobin A1c 10.60 H (4.0-6.00) % Calcium 8.4 L (8.6-10.0) mg/dL Total Protein 5.6 L (6.6-8.7) g/dL Albumin 3.6 L (4.0-5.0) g/dL Triglycerides (<150) mg/dL LDL Cholesterol Measurd (0-100) mg/dL HDL Cholesterol (40-60) mg/dL Lipase (13-60) U/L 12/21/17 12/21/17 12/22/17 Range/Units 17:00 22:00 05:58 WBC (4.2-12.2) K/uL RBC (4.40-5.70) M/uL Hgb (14.0-18.0) gm/dl Hct (42.0-52.0) % MPV (7.4-10.4) fl Sodium (136-145) mmol/L Potassium 5.0 H (3.4-4.5) mmol/L Chloride 93 L (98-107) mmol/L Carbon Dioxide 16.0 L (22-29) mmol/L Anion Gap 28.0 H (7-16) BUN (6-20) mg/dL Creatinine (0.7-1.2) mg/dL POC Glucose 132 H 308 H (70-110) mg/dL Random Glucose 563 H* (74-109) mg/dL Hemoglobin A1c (4.0-6.00) % Calcium (8.6-10.0) mg/dL Total Protein 6.3 L (6.6-8.7) g/dL Albumin 3.8 L (4.0-5.0) g/dL Triglycerides 171 H (<150) mg/dL LDL Cholesterol Measurd 128.0 H (0-100) mg/dL HDL Cholesterol 36 L (40-60) mg/dL Lipase (13-60) U/L 12/22/17 12/22/17 12/22/17 Range/Units 06:00 10:20 12:15 WBC (4.2-12.2) K/uL RBC (4.40-5.70) M/uL Hgb (14.0-18.0) gm/dl Hct (42.0-52.0) % MPV (7.4-10.4) fl Sodium (136-145) mmol/L Potassium (3.4-4.5) mmol/L Chloride (98-107) mmol/L Carbon Dioxide (22-29) mmol/L Anion Gap (7-16) BUN (6-20) mg/dL Creatinine (0.7-1.2) mg/dL POC Glucose 487 H* 280 H 158 H (70-110) mg/dL Random Glucose (74-109) mg/dL Hemoglobin A1c (4.0-6.00) % Calcium (8.6-10.0) mg/dL Total Protein (6.6-8.7) g/dL Albumin (4.0-5.0) g/dL Triglycerides (<150) mg/dL LDL Cholesterol Measurd (0-100) mg/dL HDL Cholesterol (40-60) mg/dL Lipase (13-60) U/L Condition at Discharge: (2) Stable VTE Discharge VTE Reason For No Overlap Therapy: Not Indicated Discharge Medications - Discharge Medications Prescriptions: Ondansetron [Zofran Odt] 4 mg SL Q8H PRN #20 tab.rapdis PRN Reason: Nausea/Vomiting Pantoprazole Sodium [Protonix] 40 mg PO DAILYAC #30 tablet. Home Medications: Ambulatory Orders Aspirin [Aspir 81] 81 mg PO QD tab 03/15/17 [Last Taken 12/18/17] Ondansetron [Zofran Odt] 4 mg SL Q8H PRN #20 tab.rapdis 12/22/17 [Last Taken Unknown] Pantoprazole Sodium [Protonix] 40 mg PO DAILYAC #30 tablet. 12/22/17 [Last Taken Unknown] Discharge Plan - Discharge Instructions Activity at Discharge: Increase Activity as Tolerated Diet at Discharge: Advance to Usual Diet Instructions: Ondansetron (By mouth), Pantoprazole (By mouth), Peptic Ulcer (DC ), Diet for Stomach Ulcers and Gastritis (GEN), Type 2 Diabetes in Adults (DC), Acute Nausea and Vomiting (DC), Esophagitis (DC) Additional Instructions: Start Pantoprazole 40mg daily Zofran 4mg up to three times per day for nausea/vomiting Continue to slowly advance diet as tolerated Follow up with Dr. Hannon in 6-8 weeks for EGD and colonoscopy Return to the ED if you notice any worsening symptoms, blood in stool or vomit, or for any chest pain Quality Measures - Quality Measures Quality Measures: Documentation of Current Medications in Medical Record, Screening for High Blood Pressure and F/U Documented - Current Medications Quality Measure: Measure #130: Documentation of Current Medications Documentation of Current Medications: <Current Medications Documented/Reviewed> [G8427] - Blood Pressure Screening Quality Measure: Screening for High Blood Pressure and Follow-Up Documented Does Patient Have Any of the Following: No Blood Pressure Classification: Pre-Hypertensive BP Reading Systolic Measurement: 121 Diastolic Measurement: 67 Screening for High Blood Pressure: < Pre-Hypertensive BP, F/U Documented > [ G8950] Pre-Hypertensive Follow-up Interventions: Follow-up with rescreen every year. - Elder Abuse Suspicion Index EASI Reference Information: Judy LEONARD, Chauncey C, Madeleine D, Alex Francisco.Development and validation of a tool to assist physicians identification of elder abuse: The Elder Abuse Suspicion Index (EASI ). Journal of Elder Abuse and Neglect, 2008; 20 (3): 276-300.
[2017-12-22] MEDS ORDERED: HUMULIN R 100 UNIT/ML VIAL SC ONE (14:04)
[2017-12-22] MEDS ORDERED: PROPOFOL 10 MG/ML VIAL IV ONE (14:04)
[2017-12-22] MEDS ORDERED: LIDOCAINE 2% MDV (20MG/ML) 20ML VIAL IV ONE (14:04)
[2017-12-22] MEDS ORDERED: FENTANYL PF 100MCG/2ML VIAL IV ONE (14:04)
[2017-12-23] MEDS ORDERED: PANTOPRAZOLE SODIUM 40 MG TABLET PO SCH (07:00)
--- NOTE | 2017-12-23 12:40 | Medical Records Consult ---
DATE OF CONSULTATION: 12/22/2017 REASON FOR CONSULTATION: Nausea and vomiting. HISTORY OF PRESENT ILLNESS: The patient is a 57-year-old gentleman who presented with several-day history of nausea and vomiting. He states that this was very abrupt in onset. He has not had prior issues. He denies any early satiety, melena, hematochezia, or coffee-ground emesis. He has never had any similar issues in the past. He has not had any previous upper GI evaluations. He presented to the emergency department and was felt to be dehydrated and was subsequently admitted for intravenous fluids and antiemetics. He was feeling better approximately 48 hours later but then had some recurrent nausea and vomiting. GI has seen him for his recurrent issues. He does have a history of diabetes mellitus insulin dependent for 10 years. He has never been diagnosed with gastroparesis. PAST MEDICAL HISTORY: Diabetes mellitus, hypercholesterolemia, and questionable mild hypertension. ALLERGIES: No known drug allergies. SOCIAL HISTORY: He denies tobacco use. Uses alcohol very occasionally. Uses marijuana very occasionally. REVIEW OF SYSTEMS: Noted and documented on 12/20/2017 by nurse practitioner Caroline Aldrich. No other additions other than that noted in the History of Present Illness. FAMILY HISTORY: Noncontributory. There is no known family history of colon cancer. PAST SURGICAL HISTORY: Noncontributory. HOME MEDICATIONS: 1. Acetaminophen. 2. Enteric-coated aspirin. 3. Lipitor. 4. Neurontin. 5. Insulin. 6. Ondansetron. 7. Lisinopril. PHYSICAL EXAMINATION: VITALS: 97.9, 121/67, pulse 81, respirations 18. GENERAL: He is awake, alert, oriented x3. Nontoxic in appearance. Appears to be in no acute distress. He appears his stated age. He is quite pleasant. HEENT: Head is atraumatic, normocephalic. No temporal muscle wasting was noted. Extraocular movements are intact. No conjunctival injection or scleral icterus appreciable. SKIN: Warm and dry. No jaundice appreciable. NECK: Supple. Trachea midline. Thyroid nonpalpable. HEART: Regular rate and rhythm without murmur. LUNGS: Clear to auscultation without rhonchi, rales, or wheezing. Normal to percussion. ABDOMEN: Soft. Positive bowel sounds. No guarding, rebound, or rigidity. Tenderness palpable. No hepatosplenomegaly. EXTREMITIES: No clubbing, cyanosis, or edema. LABORATORY DATA: White count 9.0, hemoglobin 12.0, hematocrit 37.4, platelets 248. Sodium 137, potassium 4.6, chloride 95, CO2 18, BUN 18, creatinine 1.2. Liver chemistries were unremarkable. Lipase was 10.0. TSH was 0.94. B12 of 1219. IMPRESSION: 1. Nausea and vomiting of unclear etiology perhaps related to viral enteritis. Perhaps could be related to gastroparesis but also could be occult peptic ulcer disease or gastric outlet obstruction which seems less likely. 2. Diabetes mellitus by history. 3. Questionable hypertension. RECOMMENDATION: I would suggest the patient undergo an upper endoscopy to further evaluation his upper GI tract. At some point he should also undergo a colonoscopy. Further recommendations will be forthcoming once endoscopy results are available. CC: MD Erika Fernandez NP MTDD
--- NOTE | 2017-12-23 13:10 | Operative Note ---
DATE OF SURGERY: 12/22/2017 OPERATION: ESOPHAGOGASTRODUODENOSCOPY with biopsy. PREOPERATIVE DIAGNOSIS: Recurrent nausea and vomiting. POSTOPERATIVE DIAGNOSES: 1. Duodenal ulcers. 2. Erosive gastritis. PROCEDURE: After informed consent was obtained from the patient, he was placed in the left lateral decubitus position in the endoscopy suite, sedated and monitored by the department of anesthesia. Once sedated, a well-lubricated [id number] gastroscope was placed in the posterior oropharynx and under direct visualization passed to the proximal esophagus. The endoscope was advanced through the proximal, mid, and distal esophagus. The GE junction demonstrated some erosive changes perhaps from recurrent nausea and vomiting and retching. No other strictures, varices, mass lesions, or irregularity was noted. The gastric body and antrum were inspected and demonstrated erosive and superficial ulcerative changes in the antrum. The duodenal bulb and sweep demonstrated multiple superficial ulcerations. J-turn views of the proximal stomach were unremarkable. The endoscope was straightened. Antral biopsies were obtained. The endoscope was removed from the patient with no new findings noted. RECOMMENDATIONS: I would suggest the patient start a proton pump inhibitor such as pantoprazole 40 mg daily. He can increase his diet as tolerated. He should undergo repeat upper endoscopy to assess ulcer healing. That upper endoscopy can be performed in 6 weeks. At that time, I would also recommend a colonoscopy, as he has not had a screening exam and is above the age of initial screening. As always, thank you for allowing me to participate in the healthcare of your patients. CC: SIDDHARTH Miguel
== END 2017-12-22 14:05 | disposition home or self-care (01) | DRG 392 ==
LOC: ER 11:11 → MEDSURG 13:31 → UNDODISIN 16:15
PROVIDERS: ADMIT Internal Medicine; ATTEND Internal Medicine
DX: R11.11 Vomiting without nausea (principal); E87.1 Hypo-osmolality and hyponatremia; E86.0 Dehydration; R73.9 Hyperglycemia, unspecified; E11.9 Type 2 diabetes mellitus without complications; Z79.4 Long term (current) use of insulin
CPT/HCPCS: 82800; 83690; 85025; 80053; 82009; J2405; J1815; 36416; 80048; 80061; 82607; 82948; 83036; 84443; 96360; 96361; 96372; 96374; 99223; 99233; 99239; 99285; J7030

== ENCOUNTER 2019-03-13 15:25 | Emergency (ER) | payer MEDICAID, MEDICARE ==
[2019-03-13] MEDS ORDERED: 0.9 % SODIUM CHLORIDE 1,000 ML BAG IV ONE ×2 (15:48→17:00)
[2019-03-13] MEDS ORDERED: HUMULIN R 100 UNIT/ML VIAL SQ ONE ×2 (15:48→17:00)
[2019-03-13 15:59] LABS: ABSOLUTE NEUTROPHIL COUNT 7.69; BASO % 0.4 % (0-6); EOS % 2.3 % (0-6); HEMATOCRIT 41.5 % (42.0-52.0); HEMOGLOBIN 13.7 gm/dl (14.0-18.0); LYMPH % 18.6 % (16-45); MEAN CELL VOLUME 86.3 fl (81-97); MEAN PLATELET VOLUME 11.4 fl (7.4-10.4); MONO % 7.7 % (0-9); PLATELET COUNT 232 K/uL (130-400); RED BLOOD COUNT 4.81 M/uL (4.40-5.70); RED CELL DISTRIBUTION WIDTH 13.6 % (11.5-14.5); WHITE BLOOD COUNT W/O DIFF 10.8 K/uL (4.2-12.2)
[2019-03-13 16:03] LABS: MEAN CORPUSCULAR HEMOGLOBIN 28.4 pg (27-33)
[2019-03-13 16:08] LABS: BLOOD UREA NITROGEN 35 mg/dL (6-20); CREATININE 1.4 mg/dL (0.7-1.2); EST GLOMERULAR FILTRATION RATE 55 mL/min
[2019-03-13 16:09] LABS: TOTAL PROTEIN 6.8 g/dL (6.6-8.7)
[2019-03-13 16:14] LABS: ALB/GLOB RATIO 1.8 (1.1-1.8); ALBUMIN 4.4 g/dL (4.0-5.0); ALT/SGPT 23 U/L (<41); AST/SGOT 14 U/L (10.0-50.0)
[2019-03-13 16:22] LABS: GLUCOSE,RANDOM 588 mg/dL (74-109)
[2019-03-13 16:27] LABS: ACETONE,SERUM SMALL (NEGATIVE)
[2019-03-13 16:41] LABS: URINE APPEARANCE CLEAR; URINE BILIRUBIN NEGATIVE (NEGATIVE); URINE BLOOD NEGATIVE (NEGATIVE); URINE COLOR YELLOW; URINE KETONE 15 mg/dL (NEGATIVE); URINE LEUKOCYTE ESTERASE NEGATIVE (NEGATIVE); URINE NITRITE NEGATIVE (NEGATIVE); URINE PROTEIN NEGATIVE (NEGATIVE); URINE UROBILINOGEN 0.2 E.U./dL (0.20 - 1.00)
[2019-03-13 16:44] LABS: URINE GLUCOSE (UA) >=1000 mg/dL (NEGATIVE)
[2019-03-13 17:30] LABS: ALKALINE PHOSPHATASE 85 U/L (40-129)
[2019-03-13] MEDS ORDERED: HUMULIN 70/30 KWIKPEN 100 UNIT/ML SQ ONE (18:21)
--- NOTE | 2019-03-13 18:49 | Emergency Department Record ---
History of Present Illness - General Chief complaint: Hypergylcemia Stated complaint: HYPERGLYCEMIA Time Seen by Provider: 03/13/19 15:44 Source: Patient Mode of Arrival: Ambulatory Limitations: No limitations - History of Present Illness Initial comments: pt ran out of his insulin last week. he thinks he'll be able to pick it up tomorrow. he states he had a lot of sneezing so he knew his bs was high. pt has had some vomiting as well MD Complaint: Lack of energy -: Days(s) Location: Generalized Severity: Moderate Improves with: None Worsens with: None Associated Symptoms: Confusion, Loss of appetite, Nausea/vomiting - [place] Coma Scale Eye Response: (4) Open spontaneously Motor Response: (6) Obeys commands Verbal Response: (5) Oriented [place] Total: 15 - Related Data Home Medications Medication Instructions Recorded Confirmed Last Taken Gabapentin [Neurontin] 600 mg PO TID 03/13/19 03/13/19 Unknown Insulin Detemir [Levemir] 16 unit SQ BID 03/13/19 03/13/19 Unknown Allergies Allergy/AdvReac Type Severity Reaction Status Date / Time No Known Allergies Allergy not taking Verified 03/13/19 17:04 Travel Screening - Travel/Exposure Within Last 30 Days Have you traveled within the last 30 days?: No Review of Systems Reviewed: No additional complaints except as noted below Constitutional: Reports: As per HPI, Weakness. Denies: Chills, Fever, Malaise, Night sweats, Weight change Eyes: Reports: As per HPI. Denies: Eye discharge, Eye pain, Photophobia, Vision change ENT: Reports: As per HPI. Denies: Congestion, Dental pain, Ear pain, Epistaxis, Hearing loss, Throat pain Respiratory: Reports: As per HPI. Denies: Cough, Dyspnea, Hemoptysis, Stridor, Wheezes Cardiovascular: Reports: As per HPI. Denies: Arrhythmia, Chest pain, Dyspnea on exertion, Edema, Murmurs, Orthopnea, Palpitations, Paroxysmal nocturnal dyspnea, Rheumatic Fever, Syncope Endocrine: Reports: As per HPI. Denies: Fatigue, Heat or cold intolerance, Polydipsia, Polyuria Gastrointestinal: Reports: As per HPI, Nausea, Vomiting. Denies: Abdominal pain, Constipation, Diarrhea, Hematemesis, Hematochezia, Melena Genitourinary: Reports: As per HPI. Denies: Dysuria, Frequency, Hematuria, Incontinence, Retention, Testicular pain, Testicular mass, Urgency Musculoskeletal: Reports: As per HPI. Denies: Arthralgia, Back pain, Gout, Joint swelling, Myalgia, Neck pain Skin: Reports: As per HPI. Denies: Bruising, Change in color, Change in hair/nails, Lesions, Pruritus, Rash Neurological: Reports: As per HPI. Denies: Abnormal gait, Confusion, Headache, Numbness, Paresthesias, Seizure, Tingling, Tremors, Vertigo, Weakness Psychiatric: Reports: As per HPI. Denies: Anxiety, Auditory hallucinations, Depression, Homicidal thoughts, Suicidal thoughts, Visual hallucinations Hematological/Lymphatic: Reports: As per HPI. Denies: Anemia, Blood Clots, Easy bleeding, Easy bruising, Swollen glands Past Medical History - SOCIAL HISTORY Smoking Status: Never smoker Alcohol Use: None Drug Use: Occasional Drug Use Detail:: Marijuana - RESPIRATORY Hx Respiratory Disorders: No - CARDIOVASCULAR Hx Cardio Disorders: Yes Comment:: on cholesterol rx - NEURO Hx Neuro Disorders: Yes Hx Neuropathy: Yes (feet) - GI Hx GI Disorders: No Hx Ulcer: Yes (11/2017) - Hx Genitourinary Disorders: No - ENDOCRINE Hx Endocrine Disorders: Yes Hx Diabetes: Yes (DM2) - MUSCULOSKELETAL Hx Musculoskeletal Disorders: No - PSYCH Hx Psych Problems: No - HEMATOLOGY/ONCOLOGY Hx Hematology/Oncology Disorders: No Family Medical History Any Significant Family History?: Yes Hx HTN: Brother/Sister Hx Seizures: Brother/Sister Physical Exam - General General Appearance: Alert, Oriented x3, Cooperative, Mild distress - Head Head exam: Normal inspection - Eye Eye exam: Normal appearance, PERRL, EOMI Pupils: Normal accommodation - ENT ENT exam: Normal exam, Mucous membranes dry, Normal external ear exam, Normal orophraynx Ear exam: Normal external inspection. negative: External canal tenderness Nasal Exam: Normal inspection. negative: Discharge, Sinus tenderness Mouth exam: Normal external inspection, Tongue normal Teeth exam: Normal inspection. negative: Dental caries Throat exam: Normal inspection. negative: Tonsillar erythema, Tonsillar exudate - Neck Neck exam: Normal inspection, Full ROM. negative: Tenderness - Respiratory Respiratory exam: Normal lung sounds bilaterally. negative: Respiratory distress - Cardiovascular Cardiovascular Exam: Regular rate, Normal rhythm, Normal heart sounds - GI/Abdominal GI/Abdominal exam: Soft, Normal bowel sounds. negative: Tenderness - Rectal Rectal exam: Deferred - exam: Deferred - Extremities Extremities exam: Normal inspection, Full ROM, Normal capillary refill. negative: Tenderness - Back Back exam: Reports: Normal inspection, Full ROM. Denies: Muscle spasm, Rash noted, Tenderness - Neurological Neurological exam: Alert, CN II-XII intact, Normal gait, Oriented X3 - Psychiatric Psychiatric exam: Normal affect, Normal mood - Skin Skin exam: Dry, Intact, Normal color, Warm Course Vital Signs 03/13/19 03/13/19 03/13/19 15:33 16:08 16:41 Temperature 97.9 F Pulse Rate 83 Pulse Rate [ 75 68 Pulse Ox Probe] Respiratory 18 20 18 Rate Blood Pressure 90/55 Blood Pressure 85/59 101/62 [Left Arm] Pulse Ox 97 96 97 03/13/19 18:29 Temperature Pulse Rate Pulse Rate [ 69 Pulse Ox Probe] Respiratory 18 Rate Blood Pressure Blood Pressure 120/68 [Left Arm] Pulse Ox 100 - Reevaluation(s) Reevaluation #1: 03/13/19 19:16 pt feels much better. given a pen for home. d/w annia Medical Decision Making - Lab Data Result diagrams: 03/13/19 15:45 03/13/19 15:45 Lab Results 03/13/19 03/13/19 03/13/19 Range/Units 15:34 15:45 15:45 WBC 10.8 (4.2-12.2) K/uL RBC 4.81 (4.40-5.70) M/uL Hgb 13.7 L (14.0-18.0) gm/dl Hct 41.5 L (42.0-52.0) % MCV 86.3 (81-97) fl MCH 28.4 (27-33) pg MCHC 33.0 (32-36) g/dl RDW 13.6 (11.5-14.5) % Plt Count 232 (130-400) K/uL MPV 11.4 H (7.4-10.4) fl Gran % 71.0 (47-80) % Lymphocytes % 18.6 (16-45) % Monocytes % 7.7 (0-9) % Eosinophils % 2.3 (0-6) % Basophils % 0.4 (0-6) % Absolute Neutrophils 7.69 VBG pH 7.35 (7.33-7.43) Sodium 130 L (136-145) mmol/L Potassium 4.4 (3.4-4.5) mmol/L Chloride 89 L (98-107) mmol/L Carbon Dioxide 25.0 (22-29) mmol/L Anion Gap 16.0 (7-16) BUN 35 H (6-20) mg/dL Creatinine 1.4 H (0.7-1.2) mg/dL Estimated GFR 55 mL/min POC Glucose 573 H* (70-110) mg/dL Random Glucose 588 H* (74-109) mg/dL Calcium 9.5 (8.6-10.0) mg/dL Total Bilirubin 0.40 (0.2-1.0) mg/dL AST 14 (10.0-50.0) U/L ALT 23 (<41) U/L Alkaline Phosphatase 85 (40-129) U/L Total Protein 6.8 (6.6-8.7) g/dL Albumin 4.4 (4.0-5.0) g/dL Globulin 2.4 (1.4-4.8) gm/dL Albumin/Globulin Ratio 1.8 (1.1-1.8) Urine Color Urine Appearance Urine pH (5.0-8.0) Ur Specific [place] (1.002-1.030) Urine Protein (NEGATIVE) Urine Glucose (UA) (NEGATIVE) Urine Ketones (NEGATIVE) Urine Blood (NEGATIVE) Urine Nitrite (NEGATIVE) Urine Bilirubin (NEGATIVE) Urine Urobilinogen (0.20 - 1.00) E.U./dL Ur Leukocyte Esterase (NEGATIVE) Acetone, Qual Small (NEGATIVE) 03/13/19 03/13/19 03/13/19 Range/Units 16:30 16:56 18:11 WBC (4.2-12.2) K/uL RBC (4.40-5.70) M/uL Hgb (14.0-18.0) gm/dl Hct (42.0-52.0) % MCV (81-97) fl MCH (27-33) pg MCHC (32-36) g/dl RDW (11.5-14.5) % Plt Count (130-400) K/uL MPV (7.4-10.4) fl Gran % (47-80) % Lymphocytes % (16-45) % Monocytes % (0-9) % Eosinophils % (0-6) % Basophils % (0-6) % Absolute Neutrophils VBG pH (7.33-7.43) Sodium (136-145) mmol/L Potassium (3.4-4.5) mmol/L Chloride (98-107) mmol/L Carbon Dioxide (22-29) mmol/L Anion Gap (7-16) BUN (6-20) mg/dL Creatinine (0.7-1.2) mg/dL Estimated GFR mL/min POC Glucose 392 H 327 H (70-110) mg/dL Random Glucose (74-109) mg/dL Calcium (8.6-10.0) mg/dL Total Bilirubin (0.2-1.0) mg/dL AST (10.0-50.0) U/L ALT (<41) U/L Alkaline Phosphatase (40-129) U/L Total Protein (6.6-8.7) g/dL Albumin (4.0-5.0) g/dL Globulin (1.4-4.8) gm/dL Albumin/Globulin Ratio (1.1-1.8) Urine Color Yellow Urine Appearance Clear Urine pH 5.5 (5.0-8.0) Ur Specific [place] <= 1.005 (1.002-1.030) Urine Protein Negative (NEGATIVE) Urine Glucose (UA) >=1000 mg/dl H (NEGATIVE) Urine Ketones 15 mg/dl H (NEGATIVE) Urine Blood Negative (NEGATIVE) Urine Nitrite Negative (NEGATIVE) Urine Bilirubin Negative (NEGATIVE) Urine Urobilinogen 0.2 (0.20 - 1.00) E.U./dL Ur Leukocyte Esterase Negative (NEGATIVE) Acetone, Qual (NEGATIVE) Disposition Disposition: Discharge Clinical Impression: Hyperglycemia, Hyperglycemia due to type 1 diabetes mellitus Disposition: Home, Self-Care Condition: (1) Good Instructions: Diabetic Hyperglycemia (ED) Additional Instructions: follow up with family doctor. return sooner if worse. push fluids. monitor sugars. use pen as directed Quality - Quality Measures Quality Measures: N/A - Blood Pressure Screening Does Patient Have Any of the Following: No Blood Pressure Classification: Normal BP Reading Systolic Measurement: 90 Diastolic Measurement: 55 Screening for High Blood Pressure: < Normal BP, F/U Not Required > [[id number]]
[2019-03-13] MEDS ORDERED: LEVEMIR FLEXTOUCH 100 UNIT/ML INSULIN PEN SQ ONE (18:52)
[2019-03-14] MEDS ORDERED: HUMULIN R 100 UNIT/ML VIAL SQ SCH (07:30)
== END 2019-03-13 19:43 | disposition home or self-care (01) ==
LOC: ER 15:25
DX: R41.0 Disorientation, unspecified (principal); E08.65 Diabetes mellitus due to underlying condition with hyperglycemia; T38.3X6A Underdosing of insulin and oral hypoglycemic [antidiabetic] drugs, initial encounter; R42 Dizziness and giddiness; R11.2 Nausea with vomiting, unspecified; R06.7 Sneezing; Z79.4 Long term (current) use of insulin
CPT/HCPCS: 36416; 80053; 81003; 82009; 82800; 82948; 85025; 96360; 96372; 99284; J7030

== ENCOUNTER 2019-06-15 13:07 | Inpatient (IN) | payer MEDICARE ==
[2019-06-15] MEDS ORDERED: 0.9 % SODIUM CHLORIDE 1,000 ML BAG IV ONE ×2 (13:20→14:09)
[2019-06-15] MEDS ORDERED: ONDANSETRON HCL IV 4 MG/2 ML VIAL IV ONE (13:20)
--- NOTE | 2019-06-15 13:26 | Emergency Department Record ---
History of Present Illness - General Chief complaint: Vomiting Stated complaint: VOMITING Time Seen by Provider: 06/15/19 13:16 Source: Patient Mode of Arrival: Ambulatory Limitations: No limitations - History of Present Illness Initial comments: The patient is here due to a 5 day hx of frequent nausea, vomiting and loose watery stools. The patient states he has vomited 3 times today and does have some mild abdominal cramping. He also has had some chest aching for the last day also. There has been weakness with intermittent SOB at times. The patient is a brittle Type I diabetic and states his blood sugars have not been high. MD complaint: Diarrhea, Nausea, Vomiting Onset/Timin -: Days(s) - Related Data Allergies Allergy/AdvReac Type Severity Reaction Status Date / Time No Known Allergies Allergy not taking Unverified 05/14/19 09:56 Review of Systems Constitutional: Reports: Malaise. Denies: Chills, Fever Eyes: Denies: Eye discharge ENT: Denies: Congestion Respiratory: Denies: Cough, Dyspnea Cardiovascular: Reports: Chest pain. Denies: Arrhythmia Endocrine: Reports: Fatigue Gastrointestinal: Reports: Diarrhea, Nausea, Vomiting. Denies: Hematemesis Genitourinary: Denies: Dysuria Musculoskeletal: Denies: Arthralgia Neurological: Denies: Abnormal gait Past Medical History - SOCIAL HISTORY Smoking Status: Never smoker Drug Use: Occasional Drug Use Detail:: Marijuana - RESPIRATORY Hx Respiratory Disorders: No - CARDIOVASCULAR Hx Cardio Disorders: Yes Comment:: on cholesterol rx - NEURO Hx Neuro Disorders: Yes Hx Neuropathy: Yes (feet) - GI Hx GI Disorders: No Hx Ulcer: Yes (11/2017) - Hx Genitourinary Disorders: No - ENDOCRINE Hx Endocrine Disorders: Yes Hx Diabetes: Yes (DM2) - MUSCULOSKELETAL Hx Musculoskeletal Disorders: No - PSYCH Hx Psych Problems: No - HEMATOLOGY/ONCOLOGY Hx Hematology/Oncology Disorders: No Family Medical History Hx HTN: Brother/Sister Hx Seizures: Brother/Sister Physical Exam - General General Appearance: Alert, Oriented x3, Cooperative, Mild distress - Head Head exam: Atraumatic - Eye Eye exam: Normal appearance, PERRL - ENT Throat exam: Normal inspection. negative: Tonsillar erythema, Tonsillar exudate - Neck Neck exam: Normal inspection, Full ROM. negative: Tenderness - Respiratory Respiratory exam: Normal lung sounds bilaterally. negative: Respiratory distress - Cardiovascular Cardiovascular Exam: Regular rate, Normal rhythm, Normal heart sounds. negative: Diastolic murmur - GI/Abdominal GI/Abdominal exam: Soft, Normal bowel sounds. negative: Guarding, Rebound, Rigid, Tenderness - Extremities Extremities exam: Normal inspection, Full ROM, Normal capillary refill. negative: Tenderness - Neurological Neurological exam: Alert. negative: Motor sensory deficit - Skin Skin exam: negative: Rash Course - Reevaluation(s) Reevaluation #1: The patient is doing better at this time. He is breathing easier and denies any CP, SOB, or AP. The patient is still having some nausea. I did discuss the case with Dr. Nixon and he did accept the patient for admission. 06/15/19 14:26 Reevaluation #2: The patient is doing a lot better at this time. He is breathing normally and states the nausea is gone. There is no CP, SOB, or AP at this time. His vitals are all normal also. The patient was seen in the ER by Dr. Nixon and given the OK for admission. 06/15/19 15:17 Medical Decision Making - Data Complexity MDM Data: Labs Ordered and/or Reviewed, X-Ray Ordered and/or Reviewed, EKG Ordered and/or Reviewed - Lab Data Result diagrams: 06/15/19 13:36 06/15/19 14:56 - EKG Data -: EKG Interpreted by Me EKG: No Acute Changes, Normal EKG - Radiology Data Radiology results: Report reviewed (CXR: Neg per Rad.) Disposition Disposition: Admit Clinical Impression: DKA (diabetic ketoacidoses) Qualifiers: Diabetes mellitus type: other specified (including TARAS) Diabetes mellitus complication detail: without coma Qualified Code(s): E13.10 - Other specified diabetes mellitus with ketoacidosis without coma Disposition: Still a Patient at [facility] Decision to Admit: Admit from ER Decision to Admit Date: 06/15/19 Decision to Admit Time: 15:19 Accepting Physician: Tiffani Time Discussed w/Accepting Physician: 15:19 Condition: (2) Stable Time of Disposition: 15:19 Quality - Quality Measures Quality Measures: N/A - Blood Pressure Screening View Details: Yes Does Patient Have Any of the Following: Active Dx of HTN Blood Pressure Classification: Hypertensive Reading Systolic Measurement: 158 Diastolic Measurement: 90 Screening for High Blood Pressure: Patient Exclusion, Hx of HTN [[id number]]
[2019-06-15 13:42] LABS: ABSOLUTE NEUTROPHIL COUNT 20.08; HEMATOCRIT 38.2 % (42.0-52.0); HEMOGLOBIN 13.1 gm/dl (14.0-18.0); LYMPH % 4.3 % (16-45); MEAN CELL VOLUME 85.3 fl (81-97); MEAN CORPUSCULAR HEMOGLOBIN 29.2 pg (27-33); MEAN CORPUSCULAR HGB CONC 34.3 g/dl (32-36); MONO % 6.8 % (0-9); PLATELET COUNT 351 K/uL (130-400); RED BLOOD COUNT 4.48 M/uL (4.40-5.70); RED CELL DISTRIBUTION WIDTH 12.6 % (11.5-14.5)
[2019-06-15 13:50] LABS: ACETONE,SERUM SMALL (NEGATIVE)
[2019-06-15 13:52] LABS: WHITE BLOOD COUNT W/O DIFF 22.6 K/uL (4.2-12.2)
[2019-06-15 13:58] LABS: BLOOD UREA NITROGEN 64 mg/dL (6-20); CREATININE 1.6 mg/dL (0.7-1.2); EST GLOMERULAR FILTRATION RATE 47 mL/min
[2019-06-15 13:59] LABS: LIPASE 201 U/L (13-60); TOTAL PROTEIN 7.1 g/dL (6.6-8.7)
[2019-06-15 14:03] LABS: ALBUMIN 4.1 g/dL (4.0-5.0); ALKALINE PHOSPHATASE 101 U/L (40-129); ALT/SGPT 15 U/L (<41); AST/SGOT 12 U/L (10.0-50.0)
[2019-06-15 14:12] LABS: BILIRUBIN,DIRECT < 0.2 mg/dL (0-0.3)
[2019-06-15 14:13] LABS: GLUCOSE,RANDOM 581 mg/dL (74-109)
[2019-06-15] MEDS ORDERED: PROMETHAZINE HCL 12.5 MG in 0.9 % SODIUM CHLORIDE 100ML 100 ML IVPB ONE (14:13)
[2019-06-15] MEDS ORDERED: INSULIN REGULAR, HUMAN 100 UNIT in 0.9 % SODIUM CHLORIDE 100ML 100 ML IV SCH ×4 (14:15→16:54)
[2019-06-15] MEDS ORDERED: 0.9 % SODIUM CHLORIDE 1000ML 1,000 ML IV ONE ×2 (14:32→15:40)
[2019-06-15] MEDS ORDERED: SOD CHLOR 0.9% WITH KCL 40MEQ 40 MEQ/1,000 ML IV.SOLN IV ONE ×2 (14:34→16:54)
--- NOTE | 2019-06-15 15:14 | RADIOLOGY REPORT ---
EXAMINATION: Single View Chest EXAM DATE: 06/15/2019 2:54 PM TECHNIQUE: Single view chest INDICATION: CP COMPARISON: None. ENCOUNTER: Not applicable FINDINGS: There is artifact on this image with linear lines present diffusely. Cardiac silhouette is not enlarged. Lung mota negative for focal infiltrate pneumothorax or pleural effusion. IMPRESSION: Negative for active intrathoracic disease Dictated by: Nesha Quiroga MD on 06/15/2019 3:10 PM. .
[2019-06-15 15:24] LABS: URINE APPEARANCE CLEAR; URINE BILIRUBIN NEGATIVE (NEGATIVE); URINE BLOOD SMALL (NEGATIVE); URINE COLOR YELLOW; URINE LEUKOCYTE ESTERASE NEGATIVE (NEGATIVE); URINE NITRITE NEGATIVE (NEGATIVE); URINE PROTEIN NEGATIVE (NEGATIVE); URINE UROBILINOGEN 0.2 E.U./dL (0.20 - 1.00)
[2019-06-15 15:29] LABS: URINE GLUCOSE (UA) >=1000 mg/dL (NEGATIVE); URINE KETONE 80 mg/dL (NEGATIVE)
[2019-06-15 15:33] LABS: CREATININE 1.4 mg/dL (0.7-1.2)
[2019-06-15 15:39] LABS: URINE EPITHELIAL CELLS 0 - 2 (FEW); URINE RBC 0 - 2 (NONE SEEN); URINE WBC 0 - 2 (0-2/hpf)
--- NOTE | 2019-06-15 16:03 | History & Physical ---
History of Present Illness - Date of Service Date of Service for History & Physical: 06/16/19 - History of Present Illness History of Present Illness: Mr. Colunga is a 59 y/o male who comes with a three day history of nausea, vomiting and diarrhea. The patient says that he doesn't recall eating anything different and has no recent sick contacts. He is a diabetic and says that he t akes Levemir 20 units BID and sliding scale meal time insulin but he has not been taking his short actin insulin because he hasn't been eating. He denies fevers, chills, headaches or chest pain. On arrival to the ED the patient was noted to have significant elevation in serum glucose but chest xray and UA were negative for infection. The patient was started on insulin drip, IV fluids and admitted to the general medical floor. ED course: WBCs 22K, anion gap 39, random glucose 581, K 4.8, UA ketones, glucosuria, chest xray negative. Vitals: BP HR, RR, T Sats PCP: Erika Silva NP Travel Screening - Travel/Exposure Within Last 30 Days Have you traveled within the last 30 days?: No - Travel/Exposure Within Last Year Have you traveled outside the [place] in the last year?: No - Additonal Travel Details Have you been exposed to anyone with a communicable illness?: No - Travel Symptoms Symptom Screening: Diarrhea, Vomiting Review of Systems Constitutional: Reports: Malaise. Denies: Chills, Fever Eyes: Denies: Eye discharge ENT: Denies: Congestion Respiratory: Denies: Cough, Dyspnea Cardiovascular: Reports: Chest pain. Denies: Arrhythmia Endocrine: Reports: Fatigue Gastrointestinal: Reports: Diarrhea, Nausea, Vomiting. Denies: Hematemesis Genitourinary: Denies: Dysuria Musculoskeletal: Denies: Arthralgia Neurological: Denies: Abnormal gait Past Medical History - SOCIAL HISTORY Smoking Status: Never smoker Drug Use: Occasional Drug Use Detail:: Marijuana - RESPIRATORY Hx Respiratory Disorders: No - CARDIOVASCULAR Hx Cardio Disorders: Yes Comment:: on cholesterol rx - NEURO Hx Neuro Disorders: Yes Hx Neuropathy: Yes (feet) - GI Hx GI Disorders: No Hx Ulcer: Yes (11/2017) - Hx Genitourinary Disorders: No - ENDOCRINE Hx Endocrine Disorders: Yes Hx Diabetes: Yes (DM2) - MUSCULOSKELETAL Hx Musculoskeletal Disorders: No - PSYCH Hx Psych Problems: No - HEMATOLOGY/ONCOLOGY Hx Hematology/Oncology Disorders: No Family Medical History Hx HTN: Brother/Sister Hx Seizures: Brother/Sister H&P Meds/Allergies - Allergies Allergies: Allergies Allergy/AdvReac Type Severity Reaction Status Date / Time No Known Allergies Allergy not taking Unverified 05/14/19 09:56 - Active Medications Active Medications: Current Medications Enoxaparin Sodium (Lovenox) 40 mg SQ DAILY CATHERINE Insulin Human Regular 100 unit (/ Sodium Chloride) 101 mls @ 5.05 mls/hr IV TITRATE CATHERINE; Protocol Last Admin: 06/15/19 14:28 Dose: 5 units/hr, 5.05 mls/hr Documented by: Sodium Chloride () 1,000 mls @ 250 mls/hr IV .Q4H ONE Stop: 06/15/19 18:31 Last Admin: 06/15/19 15:07 Dose: Not Given Documented by: Sodium Chloride () 1,000 mls @ 250 mls/hr IV .Q4H ONE Stop: 06/15/19 19:39 Last Admin: 06/15/19 15:46 Dose: 250 mls/hr Documented by: Physical Exam - Vital Signs Vital Signs: Vital Signs - Last 24 Hrs Temp Pulse Pulse Resp BP BP Pulse Ox 06/15/19 15:24 97 H 18 167/83 100 06/15/19 13:19 97.6 F 98 H 20 158/90 100 - General General Appearance: Alert, Oriented x3, Cooperative, Mild distress Limitations: No limitations - Head Head exam: Atraumatic - Eye Eye exam: Normal appearance, PERRL - ENT Throat exam: Normal inspection. negative: Tonsillar erythema, Tonsillar exudate - Neck Neck exam: Normal inspection, Full ROM. negative: Tenderness - Respiratory Respiratory exam: Normal lung sounds bilaterally. negative: Respiratory dis tress - Cardiovascular Cardiovascular Exam: Regular rate, Normal rhythm, Normal heart sounds. negative: Diastolic murmur - GI/Abdominal GI/Abdominal exam: Soft, Normal bowel sounds. negative: Guarding, Rebound, Rigid, Tenderness - Extremities Extremities exam: Normal inspection, Full ROM, Normal capillary refill. negative: Tenderness - Neurological Neurological exam: Alert. negative: Motor sensory deficit - Skin Skin exam: negative: Rash Results - Labs Result Diagrams: 06/15/19 13:36 06/15/19 21:50 Labs Last 24 Hours: Laboratory Results - last 24 hr 06/15/19 06/15/19 06/15/19 13:36 13:36 13:36 WBC 22.6 H* RBC 4.48 Hgb 13.1 L Hct 38.2 L MCV 85.3 MCH 29.2 MCHC 34.3 RDW 12.6 Plt Count 351 MPV 11.0 H Neutrophils % 83.0 H Band Neutrophils % 0.0 Lymphocytes % 4.3 L Monocytes % 6.8 Eosinophils % 0.0 Basophils % 0.0 Absolute Neutrophils 20.08 Lymphocytes 8.0 L Monocytes 9.0 Basophils 0.0 Eosinophil Count 0.0 Sodium 119 L* Potassium 4.3 Chloride 73 L* Carbon Dioxide 7.0 L Anion Gap 39.0 H BUN 64 H Creatinine 1.6 H Estimated GFR 47 POC Glucose Random Glucose 581 H* Calcium 8.6 Total Bilirubin 0.50 Direct Bilirubin < 0.2 AST 12 ALT 15 Alkaline Phosphatase 101 Troponin T < 0.010 Total Protein 7.1 Albumin 4.1 Lipase 201 H Urine Color Urine Appearance Urine pH Ur Specific [place] Urine Protein Urine Glucose (UA) Urine Ketones Urine Blood Urine Nitrite Urine Bilirubin Urine Urobilinogen Ur Leukocyte Esterase Urine RBC Urine WBC Ur Epithelial Cells Acetone, Qual Small 06/15/19 06/15/19 06/15/19 13:43 14:56 14:56 WBC RBC Hgb Hct MCV MCH MCHC RDW Plt Count MPV Neutrophils % Band Neutrophils % Lymphocytes % Monocytes % Eosinophils % Basophils % Absolute Neutrophils Lymphocytes Monocytes Basophils Eosinophil Count Sodium 125 L Potassium 4.8 H Chloride 82 L Carbon Dioxide 9.0 L Anion Gap 34.0 H BUN 59 H Creatinine 1.4 H Estimated GFR 55 POC Glucose 553 H* Random Glucose 484 H* Calcium 7.8 L Total Bilirubin Direct Bilirubin AST ALT Alkaline Phosphatase Troponin T Total Protein Albumin Lipase Urine Color Yellow Urine Appearance Clear Urine pH 5.5 Ur Specific [place] 1.020 Urine Protein Negative Urine Glucose (UA) >=1000 mg/dl H Urine Ketones 80 mg/dl H Urine Blood Small H Urine Nitrite Negative Urine Bilirubin Negative Urine Urobilinogen 0.2 Ur Leukocyte Esterase Negative Urine RBC 0 - 2 Urine WBC 0 - 2 Ur Epithelial Cells 0 - 2 Acetone, Qual VTE H&P Assessment - Risk for VTE Risk for VTE: Yes Risk Level: High Risk Assessment Date: 06/15/19 Risk Assessment Time: 14:00 VTE Orders Placed or Will Be Placed: Yes Plan - Inpatient Certification Inpatient Certification: 06/16/19 05:23 Inpatient certification for DKA. - Detailed Diagnosis and Plan (1) DKA (diabetic ketoacidoses) Current Visit: Yes Status: Acute Qualifiers: Diabetes mellitus type: other specified (including TARAS) Diabetes mellitus complication detail: without coma Qualified Code(s): E13.10 - Other specified diabetes mellitus with ketoacidosis without coma Base Code: E11.10 - TYPE 2 DIABETES MELLITUS WITH KETOACIDOSIS WITHOUT COMA Comment: 06/15/19: - Anion gap 39, serum gluocose 581, bicarb 7 - CXR negative, UA pending. - Started on insulin drip at 5 units/hr, IVF 0.9% bolus 2 liters. - Continue on insulin drip with titration down until serum glucose @ 250-300 gm /dL, Gap < 12, and Bicarb > 15. Overlap subcutaneous insulin with IV starting at 20 units once then resume home dose. Change IVF from normal saline to D5 0.45% saline at 250mL/hr when serum glucose between 250-300. - Resume ADA diet as tolerated. If serum glucose at 150 -200 stop the drip. - BMP in 4 hours and morning labs : CBC w/ diff (2) Vomiting Current Visit: No Status: Acute Base Code: R11.10 - VOMITING, UNSPECIFIED Comment: 06/15/19: - Zofran 4mg Q4H PRN - IVF fluids until able to tolerate PO. (3) Leukocytosis Current Visit: Yes Status: Acute Base Code: D72.829 - ELEVATED WHITE BLOOD CELL COUNT, UNSPECIFIED Comment: 06/15/19: - WBCs 22K - Check stools studies if continuing to have diarrhea. - CXR negative, UA pending. (4) Dehydration Current Visit: No Status: Acute Base Code: E86.0 - DEHYDRATION Comment: 06/15: -Dehydration secondary to nausea and vomiting for 3 days. Mild renal insufficiency with Bun/Cr: 59/1.4 - On IVF 0.9% @ 250mL/hr. Taper and D/C when labs normalize and patient can tolerate PO. (5) At risk for deep venous thrombosis Current Visit: No Status: Acute Base Code: Z91.89 - OTH PERSONAL RISK FACTORS, NOT ELSEWHERE CLASSIFIED Comment: 06/15/19: - Lovenox 40mg sq qd. (6) Full code status Current Visit: No Status: Acute Base Code: Z78.9 - OTHER SPECIFIED HEALTH STATUS Comment: 06/15/19: - The patient is a full code.
[2019-06-15] MEDS ORDERED: ONDANSETRON HCL IV 4 MG/2 ML VIAL IVP PRN (16:54)
[2019-06-15] MEDS: ENOXAPARIN 40 MG/0.4 ML SYR SQ SCH (18:42)
[2019-06-15] MEDS: LISINOPRIL 20 MG TABLET PO SCH (18:43)
[2019-06-15] MEDS: PREGABALIN 50 MG CAPSULE PO SCH ×2 (18:43→23:47)
[2019-06-15] MEDS: ASPIRIN 81 MG TABEC PO SCH (18:46)
[2019-06-15] MEDS: PANTOPRAZOLE SODIUM IV 40 MG VIAL IVP SCH (18:47)
[2019-06-15 21:09] LABS: BLOOD UREA NITROGEN 48 mg/dL (6-20); CREATININE 1.2 mg/dL (0.7-1.2); EST GLOMERULAR FILTRATION RATE > 60 mL/min
[2019-06-15 21:12] LABS: GLUCOSE,RANDOM 198 mg/dL (74-109)
[2019-06-15] MEDS: DEXTROSE 5 %-0.45 % NACL 1,000 ML IV PRN (21:18)
[2019-06-15] MEDS ORDERED: LEVEMIR FLEXTOUCH 100 UNIT/ML INSULIN PEN SQ SCH (22:00)
[2019-06-15 22:13] LABS: BLOOD UREA NITROGEN 46 mg/dL (6-20); CREATININE 1.2 mg/dL (0.7-1.2); EST GLOMERULAR FILTRATION RATE > 60 mL/min
[2019-06-15 22:15] LABS: GLUCOSE,RANDOM 203 mg/dL (74-109)
[2019-06-16] MEDS: DEXTROSE 5 %-0.45 % NACL 1,000 ML IV PRN ×4 (01:30→21:25)
[2019-06-16 06:19] LABS: ABSOLUTE NEUTROPHIL COUNT 11.76; HEMATOCRIT 32.8 % (42.0-52.0); HEMOGLOBIN 11.3 gm/dl (14.0-18.0); LYMPH % 8.1 % (16-45); MEAN CELL VOLUME 84.1 fl (81-97); MEAN CORPUSCULAR HGB CONC 34.5 g/dl (32-36); MEAN PLATELET VOLUME 10.9 fl (7.4-10.4); MONO % 10.9 % (0-9); PLATELET COUNT 272 K/uL (130-400); RED CELL DISTRIBUTION WIDTH 12.4 % (11.5-14.5); WHITE BLOOD COUNT W/O DIFF 14.5 K/uL (4.2-12.2)
[2019-06-16 06:32] LABS: MEAN CORPUSCULAR HEMOGLOBIN 28.9 pg (27-33)
[2019-06-16 06:44] LABS: BLOOD UREA NITROGEN 32 mg/dL (6-20); EST GLOMERULAR FILTRATION RATE > 60 mL/min; GLUCOSE,RANDOM 124 mg/dL (74-109)
[2019-06-16] MEDS ORDERED: FLU VAC QS 2019-20 (INPT, 6MO+) 60MCG/0.5ML IM ONE (09:00)
[2019-06-16] MEDS ORDERED: PNEUM 23-VAL ADULT IM ONE (09:00)
--- NOTE | 2019-06-16 09:20 | Physician Progress Note ---
Subjective - Date Date of Physician Progress Note: 06/16/19 - Subjective Subjective Comment: The patient states that he is feeling much better this morning. He has not had any nausea, vomiting or diarrhea last night. He has been started on clear liquids but says he hasn't tried any yet. Objective - Vital Signs Vital Signs: Vital Signs - Last 24 Hrs Temp Pulse Pulse Resp BP BP Pulse Ox 06/16/19 07:30 99.3 F 91 H 16 116/55 96 06/16/19 03:35 98.6 F 94 H 16 100/41 98 06/15/19 21:05 98.5 F 109 H 16 96/61 95 06/15/19 21:00 109 H 16 06/15/19 20:00 98 H 20 06/15/19 19:00 97.7 F 99 H 18 171/75 99 06/15/19 17:00 98.2 F 99 H 16 165/91 99 06/15/19 16:52 98.0 F 88 16 163/72 06/15/19 15:24 97 H 18 167/83 100 06/15/19 13:19 97.6 F 98 H 20 158/90 100 - General General Appearance: Alert, Oriented x3, Cooperative, Mild distress Limitations: No limitations - Head Head exam: Atraumatic - Eye Eye exam: Normal appearance, PERRL - ENT Mouth exam: Other (dry oral mucosa ) Throat exam: Normal inspection. negative: Tonsillar erythema, Tonsillar exudate - Neck Neck exam: Normal inspection, Full ROM. negative: Tenderness - Respiratory Respiratory exam: Normal lung sounds bilaterally. negative: Respiratory distress - Cardiovascular Cardiovascular Exam: Regular rate, Normal rhythm, Normal heart sounds. negative: Diastolic murmur Peripheral Pulses: 3+: Radial (R), Radial (L), Dorsalis Pedis (R), Dorsalis Pedis (L) - GI/Abdominal GI/Abdominal exam: Soft, Normal bowel sounds. negative: Guarding, Rebound, Rigid, Tenderness - Extremities Extremities exam: Normal inspection, Full ROM, Normal capillary refill. negative: Tenderness - Neurological Neurological exam: Alert. negative: Motor sensory deficit - Skin Skin exam: negative: Rash Assessment and Plan - Inpatient Certification Inpatient Certification: 06/16/19 09:20 DKA - Assessment and Plan (1) DKA (diabetic ketoacidoses) Current Visit: Yes Status: Acute Qualifiers: Diabetes mellitus type: other specified (including TARAS) Diabetes mellitus complication detail: without coma Qualified Code(s): E13.10 - Other specified diabetes mellitus with ketoacidosis without coma Base Code: E11.10 - TYPE 2 DIABETES MELLITUS WITH KETOACIDOSIS WITHOUT COMA Comment: 06/16/19: - Anion gap 39 --> 19 -->17 --> 14 , serum gluocose 581, bicarb 7--> 19 - CXR negative, UA negative - D/C insulin drip at 5 units/hr, IVF 0.9% bolus 2 liters. Start insulin Levemir 20 units BID and moderate dose sliding scale. - Resume ADA diet as tolerated. Accuchecks AcHS - Check BMP in the morning. (2) Vomiting Current Visit: No Status: Acute Base Code: R11.10 - VOMITING, UNSPECIFIED Comment: 06/16/19: Resolved - Zofran 4mg Q4H PRN - IVF fluids until able to tolerate PO. (3) Leukocytosis Current Visit: Yes Status: Acute Base Code: D72.829 - ELEVATED WHITE BLOOD CELL COUNT, UNSPECIFIED Comment: 06/16/19: - WBCs 22K --> 14.5K - CXR negative, UA negative. (4) Dehydration Current Visit: No Status: Acute Base Code: E86.0 - DEHYDRATION Comment: 06/16: -Dehydration secondary to nausea and vomiting for 3 days. Mild renal insufficiency with Bun/Cr: 59/1.4 - On IVF D5 w/ 0.45% saline at 150mL/hr. Reduce fluids to 75mL/hr once oral intake improves. (5) At risk for deep venous thrombosis Current Visit: No Status: Acute Base Code: Z91.89 - OTH PERSONAL RISK FACTORS, NOT ELSEWHERE CLASSIFIED Comment: 06/16/19: - Lovenox 40mg sq qd. - Encouraged ambulation (6) Full code status Current Visit: No Status: Acute Base Code: Z78.9 - OTHER SPECIFIED HEALTH STATUS Comment: 06/16/19: - The patient is a full code. Results - Labs Result Diagrams: 06/16/19 05:45 06/16/19 05:45 Labs Last 24 Hours: Laboratory Results - last 24 hr 06/15/19 06/15/19 06/15/19 13:36 13:36 13:36 WBC 22.6 H* RBC 4.48 Hgb 13.1 L Hct 38.2 L MCV 85.3 MCH 29.2 MCHC 34.3 RDW 12.6 Plt Count 351 MPV 11.0 H Gran % Neutrophils % 83.0 H Band Neutrophils % 0.0 Lymphocytes % 4.3 L Monocytes % 6.8 Eosinophils % 0.0 Basophils % 0.0 Absolute Neutrophils 20.08 Lymphocytes 8.0 L Monocytes 9.0 Basophils 0.0 Eosinophil Count 0.0 Sodium 119 L* Potassium 4.3 Chloride 73 L* Carbon Dioxide 7.0 L Anion Gap 39.0 H BUN 64 H Creatinine 1.6 H Estimated GFR 47 POC Glucose Random Glucose 581 H* Calcium 8.6 Magnesium Total Bilirubin 0.50 Direct Bilirubin < 0.2 AST 12 ALT 15 Alkaline Phosphatase 101 Troponin T < 0.010 Total Protein 7.1 Albumin 4.1 Lipase 201 H Urine Color Urine Appearance Urine pH Ur Specific O'Brien Urine Protein Urine Glucose (UA) Urine Ketones Urine Blood Urine Nitrite Urine Bilirubin Urine Urobilinogen Ur Leukocyte Esterase Urine RBC Urine WBC Ur Epithelial Cells Acetone, Qual Small Group A Strep Screen 06/15/19 06/15/19 06/15/19 13:43 14:56 14:56 WBC RBC Hgb Hct MCV MCH MCHC RDW Plt Count MPV Gran % Neutrophils % Band Neutrophils % Lymphocytes % Monocytes % Eosinophils % Basophils % Absolute Neutrophils Lymphocytes Monocytes Basophils Eosinophil Count Sodium 125 L Potassium 4.8 H Chloride 82 L Carbon Dioxide 9.0 L Anion Gap 34.0 H BUN 59 H Creatinine 1.4 H Estimated GFR 55 POC Glucose 553 H* Random Glucose 484 H* Calcium 7.8 L Magnesium Total Bilirubin Direct Bilirubin AST ALT Alkaline Phosphatase Troponin T Total Protein Albumin Lipase Urine Color Yellow Urine Appearance Clear Urine pH 5.5 Ur Specific O'Brien 1.020 Urine Protein Negative Urine Glucose (UA) >=1000 mg/dl H Urine Ketones 80 mg/dl H Urine Blood Small H Urine Nitrite Negative Urine Bilirubin Negative Urine Urobilinogen 0.2 Ur Leukocyte Esterase Negative Urine RBC 0 - 2 Urine WBC 0 - 2 Ur Epithelial Cells 0 - 2 Acetone, Qual Group A Strep Screen 06/15/19 06/15/19 06/15/19 16:45 16:52 16:54 WBC RBC Hgb Hct MCV MCH MCHC RDW Plt Count MPV Gran % Neutrophils % Band Neutrophils % Lymphocytes % Monocytes % Eosinophils % Basophils % Absolute Neutrophils Lymphocytes Monocytes Basophils Eosinophil Count Sodium Potassium Chloride Carbon Dioxide Anion Gap BUN Creatinine Estimated GFR POC Glucose 321 H 321 H Cancelled Random Glucose Calcium Magnesium Total Bilirubin Direct Bilirubin AST ALT Alkaline Phosphatase Troponin T Total Protein Albumin Lipase Urine Color Urine Appearance Urine pH Ur Specific O'Brien Urine Protein Urine Glucose (UA) Urine Ketones Urine Blood Urine Nitrite Urine Bilirubin Urine Urobilinogen Ur Leukocyte Esterase Urine RBC Urine WBC Ur Epithelial Cells Acetone, Qual Group A Strep Screen 06/15/19 06/15/19 06/15/19 19:29 20:45 21:50 WBC RBC Hgb Hct MCV MCH MCHC RDW Plt Count MPV Gran % Neutrophils % Band Neutrophils % Lymphocytes % Monocytes % Eosinophils % Basophils % Absolute Neutrophils Lymphocytes Monocytes Basophils Eosinophil Count Sodium 130 L Potassium 4.2 Chloride 95 L Carbon Dioxide 16.0 L Anion Gap 19.0 H BUN 48 H Creatinine 1.2 Estimated GFR > 60 POC Glucose 269 H Random Glucose 198 H Calcium 7.8 L Magnesium Total Bilirubin Direct Bilirubin AST ALT Alkaline Phosphatase Troponin T 0.011 H Total Protein Albumin Lipase Urine Color Urine Appearance Urine pH Ur Specific O'Brien Urine Protein Urine Glucose (UA) Urine Ketones Urine Blood Urine Nitrite Urine Bilirubin Urine Urobilinogen Ur Leukocyte Esterase Urine RBC Urine WBC Ur Epithelial Cells Acetone, Qual Group A Strep Screen 06/15/19 06/15/19 06/15/19 21:50 22:30 22:45 WBC RBC Hgb Hct MCV MCH MCHC RDW Plt Count MPV Gran % Neutrophils % Band Neutrophils % Lymphocytes % Monocytes % Eosinophils % Basophils % Absolute Neutrophils Lymphocytes Monocytes Basophils Eosinophil Count Sodium 130 L Potassium 4.1 Chloride 96 L Carbon Dioxide 17.0 L Anion Gap 17.0 H BUN 46 H Creatinine 1.2 Estimated GFR > 60 POC Glucose 178 H Random Glucose 203 H Calcium 7.8 L Magnesium Total Bilirubin Direct Bilirubin AST ALT Alkaline Phosphatase Troponin T Total Protein Albumin Lipase Urine Color Urine Appearance Urine pH Ur Specific O'Brien Urine Protein Urine Glucose (UA) Urine Ketones Urine Blood Urine Nitrite Urine Bilirubin Urine Urobilinogen Ur Leukocyte Esterase Urine RBC Urine WBC Ur Epithelial Cells Acetone, Qual Group A Strep Screen Negative 06/16/19 06/16/19 06/16/19 01:25 03:30 04:05 WBC RBC Hgb Hct MCV MCH MCHC RDW Plt Count MPV Gran % Neutrophils % Band Neutrophils % Lymphocytes % Monocytes % Eosinophils % Basophils % Absolute Neutrophils Lymphocytes Monocytes Basophils Eosinophil Count Sodium Potassium Chloride Carbon Dioxide Anion Gap BUN Creatinine Estimated GFR POC Glucose 79 63 L 92 Random Glucose Calcium Magnesium Total Bilirubin Direct Bilirubin AST ALT Alkaline Phosphatase Troponin T Total Protein Albumin Lipase Urine Color Urine Appearance Urine pH Ur Specific O'Brien Urine Protein Urine Glucose (UA) Urine Ketones Urine Blood Urine Nitrite Urine Bilirubin Urine Urobilinogen Ur Leukocyte Esterase Urine RBC Urine WBC Ur Epithelial Cells Acetone, Qual Group A Strep Screen 06/16/19 06/16/19 06/16/19 05:45 05:45 05:45 WBC 14.5 H RBC 3.90 L Hgb 11.3 L Hct 32.8 L MCV 84.1 MCH 28.9 MCHC 34.5 RDW 12.4 Plt Count 272 MPV 10.9 H Gran % 81.0 H Neutrophils % Band Neutrophils % Lymphocytes % 8.1 L Monocytes % 10.9 H Eosinophils % 0.0 Basophils % 0.0 Absolute Neutrophils 11.76 Lymphocytes Monocytes Basophils Eosinophil Count Sodium 133 L Potassium 4.2 Chloride 100 Carbon Dioxide 19.0 L Anion Gap 14.0 BUN 32 H Creatinine 1.0 Estimated GFR > 60 POC Glucose Random Glucose 124 H Calcium 7.8 L Magnesium Total Bilirubin Direct Bilirubin AST ALT Alkaline Phosphatase Troponin T < 0.010 Total Protein Albumin Lipase Urine Color Urine Appearance Urine pH Ur Specific O'Brien Urine Protein Urine Glucose (UA) Urine Ketones Urine Blood Urine Nitrite Urine Bilirubin Urine Urobilinogen Ur Leukocyte Esterase Urine RBC Urine WBC Ur Epithelial Cells Acetone, Qual Group A Strep Screen 06/16/19 06/16/19 05:45 08:53 WBC RBC Hgb Hct MCV MCH MCHC RDW Plt Count MPV Gran % Neutrophils % Band Neutrophils % Lymphocytes % Monocytes % Eosinophils % Basophils % Absolute Neutrophils Lymphocytes Monocytes Basophils Eosinophil Count Sodium Potassium Chloride Carbon Dioxide Anion Gap BUN Creatinine Estimated GFR POC Glucose 126 H Random Glucose Calcium Magnesium 2.3 Total Bilirubin Direct Bilirubin AST ALT Alkaline Phosphatase Troponin T Total Protein Albumin Lipase Urine Color Urine Appearance Urine pH Ur Specific O'Brien Urine Protein Urine Glucose (UA) Urine Ketones Urine Blood Urine Nitrite Urine Bilirubin Urine Urobilinogen Ur Leukocyte Esterase Urine RBC Urine WBC Ur Epithelial Cells Acetone, Qual Group A Strep Screen DVT/PE Assessment - Risk for VTE Risk for VTE: No Risk Level: High Risk Assessment Date: 06/15/19 Risk Assessment Time: 14:00 VTE Orders Placed or Will Be Placed: Yes - Active Medicaitons Current Medications: Current Medications Acetaminophen (Tylenol 500mg Tab) 500 mg PO Q6H PRN PRN Reason: PAIN - MILD(1-4)/FEVER Aspirin (Ecotrin (Ec)) 81 mg PO DAILY [facility] Last Admin: 06/15/19 18:46 Dose: 81 mg Documented by: Enoxaparin Sodium (Lovenox) 40 mg SQ DAILY [facility] Last Admin: 06/15/19 18:42 Dose: 40 mg Documented by: Dextrose/Sodium Chloride () 1,000 mls @ 150 mls/hr IV .Q6H40M PRN PRN Reason: IV PREMIX Last Admin: 06/16/19 06:41 Dose: 150 mls/hr Documented by: Insulin Aspart (Novolog Flexpen) 1 unit SQ TIDINS [facility]; Protocol Insulin Detemir (Levemir Flextouch) 20 unit SQ BID [facility] Lisinopril (Zestril) 20 mg PO DAILY [facility] Last Admin: 06/15/19 18:43 Dose: 20 mg Documented by: Ondansetron HCl (Zofran) 4 mg IVP Q4H PRN PRN Reason: NAUSEA Pantoprazole Sodium (Protonix Iv) 40 mg IVP Q24H [facility] Last Admin: 06/15/19 18:47 Dose: 40 mg Documented by: Pregabalin (Lyrica) 50 mg PO TID [facility] Last Admin: 06/15/19 23:47 Dose: 50 mg Documented by: AMI Plan - Labs Result Diagrams: 06/16/19 05:45 06/16/19 05:45
[2019-06-16] MEDS: LISINOPRIL 20 MG TABLET PO SCH (10:31)
[2019-06-16] MEDS: PREGABALIN 50 MG CAPSULE PO SCH ×3 (10:32→21:25)
[2019-06-16] MEDS: ENOXAPARIN 40 MG/0.4 ML SYR SQ SCH (10:32)
[2019-06-16] MEDS: ASPIRIN 81 MG TABEC PO SCH (10:32)
[2019-06-16] MEDS: LEVEMIR FLEXTOUCH 100 UNIT/ML INSULIN PEN SQ SCH ×2 (10:32→22:09)
[2019-06-16] MEDS: NOVOLOG FLEXPEN (INSULIN ASPART) 100 UNITS/ML SQ SCH ×2 (13:18→18:16)
[2019-06-16] MEDS: PANTOPRAZOLE SODIUM IV 40 MG VIAL IVP SCH (16:10)
[2019-06-17] MEDS: ACETAMINOPHEN 500 MG TABLET PO PRN ×2 (01:03→08:06)
[2019-06-17] MEDS: DEXTROSE 5 %-0.45 % NACL 1,000 ML IV PRN (04:19)
--- NOTE | 2019-06-17 06:03 | Discharge Summary ---
Providers Discharge Summary Date: 06/17/19 Date of admission: 06/15/19 16:20 Attending physician: CHERIE HAMILTON Primary care physician: Erika Brown N.P. Physical Exam - Vital Signs Vital Signs: Vital Signs - Last 24 Hrs Temp Pulse Resp BP BP Pulse Ox 06/17/19 04:00 99.1 F 80 16 118/62 95 06/17/19 00:35 99.7 F H 87 16 112/50 97 06/16/19 21:00 83 18 06/16/19 20:45 98.9 F 83 18 107/64 96 06/16/19 19:27 98.8 F 116/63 06/16/19 15:00 98.8 F 86 16 116/63 97 06/16/19 11:00 99.4 F 91 H 16 103/55 97 06/16/19 09:00 91 H 16 06/16/19 07:30 99.3 F 91 H 16 116/55 96 - General General Appearance: Alert, Oriented x3, Cooperative, Mild distress Limitations: No limitations - Head Head exam: Atraumatic - Eye Eye exam: Normal appearance, PERRL - ENT Mouth exam: Other (dry oral mucosa ) Throat exam: Normal inspection. negative: Tonsillar erythema, Tonsillar exudate - Neck Neck exam: Normal inspection, Full ROM. negative: Tenderness - Respiratory Respiratory exam: Normal lung sounds bilaterally. negative: Respiratory distress - Cardiovascular Cardiovascular Exam: Regular rate, Normal rhythm, Normal heart sounds. negative: Diastolic murmur Peripheral Pulses: 3+: Radial (R), Radial (L), Dorsalis Pedis (R), Dorsalis Pedis (L) - GI/Abdominal GI/Abdominal exam: Soft, Normal bowel sounds. negative: Guarding, Rebound, Rigi d, Tenderness - Extremities Extremities exam: Normal inspection, Full ROM, Normal capillary refill. negative: Tenderness - Neurological Neurological exam: Alert. negative: Motor sensory deficit - Skin Skin exam: negative: Rash Hospitalization - Hospitalization Admission Diagnosis: 1. Acute DKA - Problem List/Discharge Diagnosis (1) DKA (diabetic ketoacidoses) Current Visit: Yes Status: Acute Discharge Diagnosis: Diabetes mellitus type: other specified (including TARAS) Diabetes mellitus complication detail: without coma Qualified Code(s): E13.10 - Other specified diabetes mellitus with ketoacidosis without coma Base Code: E11.10 - TYPE 2 DIABETES MELLITUS WITH KETOACIDOSIS WITHOUT COMA Comment: 06/17/19: - Anion gap 39 --> 19 -->17 --> 14 -->9, serum gluocose 581, bicarb 7--> 19-->25 - CXR negative, UA negative - Levemir 20 units BID and moderate dose sliding scale. - Resume ADA diet as tolerated. Accuchecks AcHS (2) Leukocytosis Current Visit: Yes Status: Acute Base Code: D72.829 - ELEVATED WHITE BLOOD CELL COUNT, UNSPECIFIED Comment: 06/17/19: resolved - WBCs 22K --> 14.5K - CXR negative, UA negative. (3) Dehydration Current Visit: No Status: Acute Base Code: E86.0 - DEHYDRATION Comment: 06/17: -Dehydration secondary to nausea and vomiting for 3 days. Mild renal insufficiency with Bun/Cr: 59/1.4 --> 15/0.8 resolved - Fluids to 75mL/hr once oral intake improves. (4) At risk for deep venous thrombosis Current Visit: No Status: Acute Base Code: Z91.89 - OT PERSONAL RISK FACTORS, NOT ELSEWHERE CLASSIFIED Comment: 06/17/19: - Lovenox 40mg sq qd. - Encouraged ambulation (5) Full code status Current Visit: No Status: Acute Base Code: Z78.9 - OTHER SPECIFIED HEALTH STATUS Comment: 06/17/19: - The patient is a full code. - Hospitalization Course Hospital Course: Mr. Colunga is a 59 y/o male who comes with a three day history of nausea, vomiting and diarrhea. The patient says that he doesn't recall eating anything different and has no recent sick contacts. He is a diabetic and says that he takes Levemir 20 units BID and sliding scale meal time insulin but he has not been taking his short actin insulin because he hasn't been eating. He denies fevers, chills, headaches or chest pain. On arrival to the ED the patient was noted to have significant elevation in serum glucose but chest xray and UA were negative for infection. The patient was started on insulin drip, IV fluids and admitted to the general medical floor. ED course: WBCs 22K, anion gap 39, random glucose 581, K 4.8, UA ketones, glucosuria, chest xray negative. Vitals: BP HR, RR, T Sats Hospital course: The patient was kept on IV insulin drip with a rate of 5 units/min with titration until resolution of DKA. He was transitioned to Levemir 20 units daily and sliding scale when anion gap closed and bicarb normalized. The patient still had very little appetite on day #1 but serum glucose was stable. His nausea, vomiting and diarrhea had completely resolved on the first day of admission. He also complained of throat soreness and pain. Strep A/B is negative and culture is pending. He was given Tylenol which resolved his symptoms but he still has some irritation on swallowing. The patient is stable for discharge on examination this morning and will follow up with his PCP within 1 week of discharge. Vitals 04/17/19: BP 111/58, HR 82, Sats 98% RA, T 98.9, RR 17. PCP: Erika Silva [employer] Procedures: Imaging and X-Rays 06/15/19 14:21 CHEST 1 VIEW [RAD] Stat Cardiology Procedures 06/15/19 13:20 Injector Assembler NOW EKG NOW 06/15/19 16:54 Injector Assembler .Continuous EKG QDX2@0600 Abnormal Labs: Abnormal Lab Results 06/15/19 06/15/19 06/15/19 Range/Units 13:36 13:36 13:43 WBC 22.6 H* (4.2-12.2) K/uL RBC (4.40-5.70) M/uL Hgb 13.1 L (14.0-18.0) gm/dl Hct 38.2 L (42.0-52.0) % MPV 11.0 H (7.4-10.4) fl Gran % (47-80) % Neutrophils % 83.0 H (47-80) % Lymphocytes % 4.3 L (16-45) % Monocytes % (0-9) % Lymphocytes 8.0 L (16-45) % Sodium 119 L* (136-145) mmol/L Potassium (3.4-4.5) mmol/L Chloride 73 L* (98-107) mmol/L Carbon Dioxide 7.0 L (22-29) mmol/L Anion Gap 39.0 H (7-16) BUN 64 H (6-20) mg/dL Creatinine 1.6 H (0.7-1.2) mg/dL POC Glucose 553 H* (70-110) mg/dL Random Glucose 581 H* (74-109) mg/dL Calcium (8.6-10.0) mg/dL Troponin T (0-0.010) ng/mL Lipase 201 H (13-60) U/L Urine Glucose (UA) (NEGATIVE) Urine Ketones (NEGATIVE) Urine Blood (NEGATIVE) 06/15/19 06/15/19 06/15/19 Range/Units 14:56 14:56 16:45 WBC (4.2-12.2) K/uL RBC (4.40-5.70) M/uL Hgb (14.0-18.0) gm/dl Hct (42.0-52.0) % MPV (7.4-10.4) fl Gran % (47-80) % Neutrophils % (47-80) % Lymphocytes % (16-45) % Monocytes % (0-9) % Lymphocytes (16-45) % Sodium 125 L (136-145) mmol/L Potassium 4.8 H (3.4-4.5) mmol/L Chloride 82 L (98-107) mmol/L Carbon Dioxide 9.0 L (22-29) mmol/L Anion Gap 34.0 H (7-16) BUN 59 H (6-20) mg/dL Creatinine 1.4 H (0.7-1.2) mg/dL POC Glucose 321 H (70-110) mg/dL Random Glucose 484 H* (74-109) mg/dL Calcium 7.8 L (8.6-10.0) mg/dL Troponin T (0-0.010) ng/mL Lipase (13-60) U/L Urine Glucose (UA) >=1000 mg/dl H (NEGATIVE) Urine Ketones 80 mg/dl H (NEGATIVE) Urine Blood Small H (NEGATIVE) 06/15/19 06/15/19 06/15/19 Range/Units 16:52 19:29 20:45 WBC (4.2-12.2) K/uL RBC (4.40-5.70) M/uL Hgb (14.0-18.0) gm/dl Hct (42.0-52.0) % MPV (7.4-10.4) fl Gran % (47-80) % Neutrophils % (47-80) % Lymphocytes % (16-45) % Monocytes % (0-9) % Lymphocytes (16-45) % Sodium 130 L (136-145) mmol/L Potassium (3.4-4.5) mmol/L Chloride 95 L (98-107) mmol/L Carbon Dioxide 16.0 L (22-29) mmol/L Anion Gap 19.0 H (7-16) BUN 48 H (6-20) mg/dL Creatinine (0.7-1.2) mg/dL POC Glucose 321 H 269 H (70-110) mg/dL Random Glucose 198 H (74-109) mg/dL Calcium 7.8 L (8.6-10.0) mg/dL Troponin T (0-0.010) ng/mL Lipase (13-60) U/L Urine Glucose (UA) (NEGATIVE) Urine Ketones (NEGATIVE) Urine Blood (NEGATIVE) 06/15/19 06/15/19 06/15/19 Range/Units 21:50 21:50 22:45 WBC (4.2-12.2) K/uL RBC (4.40-5.70) M/uL Hgb (14.0-18.0) gm/dl Hct (42.0-52.0) % MPV (7.4-10.4) fl Gran % (47-80) % Neutrophils % (47-80) % Lymphocytes % (16-45) % Monocytes % (0-9) % Lymphocytes (16-45) % Sodium 130 L (136-145) mmol/L Potassium (3.4-4.5) mmol/L Chloride 96 L (98-107) mmol/L Carbon Dioxide 17.0 L (22-29) mmol/L Anion Gap 17.0 H (7-16) BUN 46 H (6-20) mg/dL Creatinine (0.7-1.2) mg/dL POC Glucose 178 H (70-110) mg/dL Random Glucose 203 H (74-109) mg/dL Calcium 7.8 L (8.6-10.0) mg/dL Troponin T 0.011 H (0-0.010) ng/mL Lipase (13-60) U/L Urine Glucose (UA) (NEGATIVE) Urine Ketones (NEGATIVE) Urine Blood (NEGATIVE) 06/16/19 06/16/19 06/16/19 Range/Units 03:30 05:45 05:45 WBC 14.5 H (4.2-12.2) K/uL RBC 3.90 L (4.40-5.70) M/uL Hgb 11.3 L (14.0-18.0) gm/dl Hct 32.8 L (42.0-52.0) % MPV 10.9 H (7.4-10.4) fl Gran % 81.0 H (47-80) % Neutrophils % (47-80) % Lymphocytes % 8.1 L (16-45) % Monocytes % 10.9 H (0-9) % Lymphocytes (16-45) % Sodium 133 L (136-145) mmol/L Potassium (3.4-4.5) mmol/L Chloride (98-107) mmol/L Carbon Dioxide 19.0 L (22-29) mmol/L Anion Gap (7-16) BUN 32 H (6-20) mg/dL Creatinine (0.7-1.2) mg/dL POC Glucose 63 L (70-110) mg/dL Random Glucose 124 H (74-109) mg/dL Calcium 7.8 L (8.6-10.0) mg/dL Troponin T (0-0.010) ng/mL Lipase (13-60) U/L Urine Glucose (UA) (NEGATIVE) Urine Ketones (NEGATIVE) Urine Blood (NEGATIVE) 06/16/19 06/16/19 06/16/19 Range/Units 08:53 15:32 16:04 WBC (4.2-12.2) K/uL RBC (4.40-5.70) M/uL Hgb (14.0-18.0) gm/dl Hct (42.0-52.0) % MPV (7.4-10.4) fl Gran % (47-80) % Neutrophils % (47-80) % Lymphocytes % (16-45) % Monocytes % (0-9) % Lymphocytes (16-45) % Sodium (136-145) mmol/L Potassium (3.4-4.5) mmol/L Chloride (98-107) mmol/L Carbon Dioxide (22-29) mmol/L Anion Gap (7-16) BUN (6-20) mg/dL Creatinine (0.7-1.2) mg/dL POC Glucose 126 H 68 L 119 H (70-110) mg/dL Random Glucose (74-109) mg/dL Calcium (8.6-10.0) mg/dL Troponin T (0-0.010) ng/mL Lipase (13-60) U/L Urine Glucose (UA) (NEGATIVE) Urine Ketones (NEGATIVE) Urine Blood (NEGATIVE) 06/16/19 06/16/19 Range/Units 17:30 22:00 WBC (4.2-12.2) K/uL RBC (4.40-5.70) M/uL Hgb (14.0-18.0) gm/dl Hct (42.0-52.0) % MPV (7.4-10.4) fl Gran % (47-80) % Neutrophils % (47-80) % Lymphocytes % (16-45) % Monocytes % (0-9) % Lymphocytes (16-45) % Sodium (136-145) mmol/L Potassium (3.4-4.5) mmol/L Chloride (98-107) mmol/L Carbon Dioxide (22-29) mmol/L Anion Gap (7-16) BUN (6-20) mg/dL Creatinine (0.7-1.2) mg/dL POC Glucose 153 H 184 H (70-110) mg/dL Random Glucose (74-109) mg/dL Calcium (8.6-10.0) mg/dL Troponin T (0-0.010) ng/mL Lipase (13-60) U/L Urine Glucose (UA) (NEGATIVE) Urine Ketones (NEGATIVE) Urine Blood (NEGATIVE) Condition at Discharge: (2) Stable Discharge Plan - Discharge Instructions Activity at Discharge: Resume Usual Activities As Tolerated Diet at Discharge: Diabetic Diet Additional Instructions: When you get home please try to remain as hydrated as possible by drinking water several times daily. Resume your Insulin regimen as prescribed: Levemir 20 units BID and Novolog 45 units daily in divided doses. All other home medications are to be resumed as prescribed. Our animal care provider will call you to schedule a follow up appointment with your PCP. If you have return of symptoms please go to the nearest ED. Quality Measures - Quality Measures Quality Measures: Documentation of Current Medications in Medical Record, Screening for High Blood Pressure and F/U Documented - Current Medications Quality Measure: Measure #130: Documentation of Current Medications Documentation of Current Medications: <Current Medications Documented/Reviewed> [[id number]] - Blood Pressure Screening Quality Measure: Screening for High Blood Pressure and Follow-Up Documented Does Patient Have Any of the Following: Active Dx of HTN Blood Pressure Classification: Normal BP Reading Systolic Measurement: 116 Diastolic Measurement: 63 Screening for High Blood Pressure: Patient Exclusion, Hx of HTN [G9744] - Elder Abuse Suspicion Index EASI Reference Information: Judy LEONARD, Chauncey C, Madeleine D, Alex Francisco.Development and validation of a tool to assist physicians identification of elder abuse: The Elder Abuse Suspicion Index (EASI ). Journal of Elder Abuse and Neglect, 2008; 20 (3): 276-300.
[2019-06-17 06:27] LABS: BLOOD UREA NITROGEN 15 mg/dL (6-20); CREATININE 0.8 mg/dL (0.7-1.2); EST GLOMERULAR FILTRATION RATE > 60 mL/min; GLUCOSE,RANDOM 105 mg/dL (74-109)
[2019-06-17] MEDS: NOVOLOG FLEXPEN (INSULIN ASPART) 100 UNITS/ML SQ SCH (08:07)
[2019-06-17] MEDS ORDERED: PHENOL SORE THROAT SPRAY 177 ML BTL MM PRN (09:22)
[2019-06-17] MEDS: LISINOPRIL 20 MG TABLET PO SCH (09:49)
[2019-06-17] MEDS: PREGABALIN 50 MG CAPSULE PO SCH (09:49)
[2019-06-17] MEDS: ASPIRIN 81 MG TABEC PO SCH (09:49)
[2019-06-17] MEDS: ENOXAPARIN 40 MG/0.4 ML SYR SQ SCH (09:49)
[2019-06-17] MEDS: LEVEMIR FLEXTOUCH 100 UNIT/ML INSULIN PEN SQ SCH (09:50)
== END 2019-06-17 12:35 | disposition home or self-care (01) | DRG 639 ==
LOC: ER 13:07 → MEDSURG 16:20
PROVIDERS: ADMIT Internal Medicine; ATTEND Internal Medicine
DX: E13.10 Other specified diabetes mellitus with ketoacidosis without coma (principal); R19.7 Diarrhea, unspecified; D72.829 Elevated white blood cell count, unspecified; E78.00 Pure hypercholesterolemia, unspecified; G62.9 Polyneuropathy, unspecified; Z23 Encounter for immunization; E86.0 Dehydration
CPT/HCPCS: 83690; 80076; 80048 ×2; 36416; 81001; 82009; 82948; 84484; 85027; 71045; J2405; J1815; 83735; 85025; 87880; 93005; 96365; 96366; 96374; 96375; 99223; 99239; 99285; C9113; J1650; J2550; J7030

== ENCOUNTER 2019-06-26 13:02 | Observation (INO) | payer MEDICARE ==
[2019-06-26] MEDS ORDERED: ONDANSETRON HCL IV 4 MG/2 ML VIAL IVP PRN (14:53)
[2019-06-26] MEDS ORDERED: METOCLOPRAMIDE HCL 10 MG/2 ML VIAL IVP PRN (14:53)
[2019-06-26] MEDS ORDERED: 0.9 % SODIUM CHLORIDE 1000ML 1,000 ML IV SCH (17:30)
[2019-06-26 17:47] LABS: ABSOLUTE NEUTROPHIL COUNT 5.37; BASO % 0.5 % (0-6); EOS % 1.1 % (0-6); HEMATOCRIT 30.5 % (42.0-52.0); HEMOGLOBIN 9.8 gm/dl (14.0-18.0); LYMPH % 26.4 % (16-45); MEAN CELL VOLUME 88.7 fl (81-97); MEAN CORPUSCULAR HGB CONC 32.1 g/dl (32-36); MEAN PLATELET VOLUME 8.7 fl (7.4-10.4); PLATELET COUNT 566 K/uL (130-400); RED BLOOD COUNT 3.44 M/uL (4.40-5.70); RED CELL DISTRIBUTION WIDTH 13.3 % (11.5-14.5); WHITE BLOOD COUNT W/O DIFF 8.5 K/uL (4.2-12.2)
[2019-06-26 17:48] LABS: MEAN CORPUSCULAR HEMOGLOBIN 28.4 pg (27-33)
[2019-06-26 17:54] LABS: ACETONE,SERUM NEGATIVE (NEGATIVE)
[2019-06-26 17:56] LABS: BILIRUBIN,TOTAL < 0.20 mg/dL (0.2-1.0); BLOOD UREA NITROGEN 17 mg/dL (6-20); CREATININE 0.9 mg/dL (0.7-1.2); EST GLOMERULAR FILTRATION RATE > 60 mL/min
[2019-06-26 17:57] LABS: TOTAL PROTEIN 5.5 g/dL (6.6-8.7)
[2019-06-26 17:59] LABS: GLUCOSE,RANDOM 133 mg/dL (74-109)
[2019-06-26 18:01] LABS: ALT/SGPT 9 U/L (<41); AST/SGOT 9 U/L (10.0-50.0)
[2019-06-26 18:02] LABS: ALKALINE PHOSPHATASE 61 U/L (40-129); BILIRUBIN,DIRECT < 0.2 mg/dL (0-0.3)
[2019-06-26] MEDS ORDERED: 0.9 % SODIUM CHLORIDE 1000ML 3,000 ML IV ONE (18:21)
[2019-06-26] MEDS: 0.9 % SODIUM CHLORIDE 1000ML 1,000 ML IV PRN (18:50)
--- NOTE | 2019-06-26 19:20 | Inpatient Certification ---
Inpatient Certification Admit to inpatient care: Based on my medical assessment, after consideration of patient's risk factors (age, co-morbidities and patient presenting symptoms and acuity), I expect that this patient will remain in the hospital greater than or equal to two midnights and that the services needed warrant inpatient care because:of his brittle diabetes and vomiting Patient Risk Factors: [dm, vomiting ] Estimated length of stay: [3 days] The patient may reasonably be expected to be discharged or transferred to a hospital within 96 hours after admission to [facility]. Services needed: [iv fluids and insulin] Post hospital care (if known): [] I certify that my determination is in accordance with my understanding of Medicare requirements for reasonable and necessary inpatient services. 06/26/19 19:18
--- NOTE | 2019-06-26 19:20 | Physician Progress Note ---
DVT/PE Assessment - Risk for VTE Risk for VTE: Yes Risk Level: Moderate Risk Assessment Date: 06/26/19 Risk Assessment Time: 19:20 VTE Orders Placed or Will Be Placed: Yes - Active Medicaitons Current Medications: Current Medications Enoxaparin Sodium (Lovenox) 40 mg SQ DAILY [facility] Sodium Chloride () 1,000 mls @ 100 mls/hr IV .Q10H PRN PRN Reason: LARGE VOLUME IV Last Admin: 06/26/19 18:50 Dose: 100 mls/hr Documented by: Sodium Chloride () 1,000 mls @ 0 mls/hr IV .Q0M CATHERINE Last Admin: 06/26/19 17:48 Dose: 500 mls/hr Documented by: Sodium Chloride () 3,000 mls @ 100 mls/hr IV .Q24H ONE Stop: 06/27/19 18:20 Insulin Aspart (Novolog Flexpen) 1 unit SQ TIDINS [facility]; Protocol Insulin Detemir (Levemir Flextouch) 20 unit SQ DAILY [facility] Metoclopramide HCl (Reglan) 10 mg IVP Q6H PRN PRN Reason: NAUSEA Last Admin: 06/26/19 17:47 Dose: 10 mg Documented by: Ondansetron HCl (Zofran) 4 mg IVP Q6H PRN PRN Reason: NAUSEA
[2019-06-26] MEDS: ENOXAPARIN 40 MG/0.4 ML SYR SQ SCH (20:17)
--- NOTE | 2019-06-26 21:00 | RADIOLOGY REPORT ---
EXAMINATION: Frontal and Lateral Chest EXAM DATE: 06/26/2019 8:38 PM INDICATION: cough FINDINGS: Comparison with 06/15/2019. Frontal and lateral views show clear lungs, normal heart size, and normal hilar and mediastinal structures. Old granulomatous disease again incidentally noted. IMPRESSION: Normal chest. Dictated by: Junior Madrid MD on 06/26/2019 8:47 PM. .
[2019-06-26 21:09] LABS: URINE APPEARANCE CLEAR; URINE BILIRUBIN NEGATIVE (NEGATIVE); URINE BLOOD NEGATIVE (NEGATIVE); URINE COLOR YELLOW; URINE KETONE NEGATIVE (NEGATIVE); URINE LEUKOCYTE ESTERASE NEGATIVE (NEGATIVE); URINE NITRITE NEGATIVE (NEGATIVE); URINE PROTEIN NEGATIVE (NEGATIVE); URINE UROBILINOGEN 0.2 E.U./dL (0.20 - 1.00)
[2019-06-26 21:15] LABS: AMPHETAMINE SCREEN URINE NOT DETECTED; BARBITURATE SCREEN URINE NOT DETECTED; BENZODIAZEPINE SCREEN URINE NOT DETECTED; COCAINE SCREEN URINE NOT DETECTED; METHADONE SCREEN URINE NOT DETECTED; METHAMPHETAMINE SCREEN NOT DETECTED; OPIATE SCREEN URINE NOT DETECTED; OXYCODONE SCREEN URINE NOT DETECTED; PHENCYCLIDINE SCREEN URINE NOT DETECTED; PROPOXYPHENE SCREEN URINE NOT DETECTED; THC SCREEN URINE DETECTED; TRICYCLIC ANTIDEPRESSANT SCRN NOT DETECTED
[2019-06-27] MEDS: 0.9 % SODIUM CHLORIDE 1000ML 1,000 ML IV PRN (04:35)
[2019-06-27 07:16] LABS: BLOOD UREA NITROGEN 12 mg/dL (6-20); CREATININE 0.9 mg/dL (0.7-1.2); EST GLOMERULAR FILTRATION RATE > 60 mL/min; GLUCOSE,RANDOM 222 mg/dL (74-109)
[2019-06-27] MEDS: NOVOLOG FLEXPEN (INSULIN ASPART) 100 UNITS/ML SQ SCH ×2 (08:25→12:12)
--- NOTE | 2019-06-27 08:40 | History and Physical Report ---
DATE: 06/26/2019 CHIEF COMPLAINT: Vomiting, hyperglycemia, nausea, cough. HISTORY OF PRESENT ILLNESS: The patient is a known brittle diabetic with insulin use. He states that he was just discharged from [facility] for an episode of DKA on 06/17/2019. He was treated with an insulin drip and fluids. He stated he has not been feeling that well since he got home but he vomited at 4 a.m., went in to see his doctor, Erika Brown, this morning and she observed him and felt that he was too unstable to send home. She directly admitted him to the floor and I am covering for floor admissions and the hospital patients this week. The patient stated he was vomiting, nauseated but the last episode of vomiting was at 4 a.m. He has not been eating for the last 2 or 3 days and he said his weight has gone down. The patient did take 20 units of Levemir insulin this morning at 8 a.m. He took 18 units of NovoLog. He has not had any other insulin but he has not really eaten much throughout the day. Chest x-ray is ordered and pending. UA is pending. EKG showing normal sinus rhythm, no acute changes. His hemoglobin is 9.3, WBC 8500, venous pH 7.49, potassium 3.9, sodium 136, BUN 17, creatinine 0.9, random glucose 133 just before dinner at about 1725, lactic acid 1.3 in the normal range, calcium 8.4, liver enzymes are normal. Urine is pending. Acetone was negative. PAST MEDICAL HISTORY: Diabetes mellitus with insulin use, neuropathy of his legs, anemia, hypercholesterolemia. PAST SURGICAL HISTORY: He had a left great toe amputation in 2016 because of osteomyelitis at [facility]. He had a tonsillectomy as a child. He states that he is using Lyrica for his legs but he has not taken it for 2-3 months because it is too expensive. He also had a peptic ulcer in November 2017. He is overweight. MEDICATIONS: 1. Lyrica, which he has not been taking for 2 or 3 months. He was taking 50 mg t.i.d. 2. Levemir 20 units b.i.d. 8 a.m. and 8 p.m. 3. Ferrous sulfate 325 t.i.d. I will confirm that dose; it seems very high. 4. Atorvastatin 20 mg daily. 5. Lisinopril 20 mg daily. 6. NovoLog to scale. He uses 1 unit of NovoLog for every 25 mg/dL over 200 before meals. ALLERGIES: No known drug allergies. SOCIAL HISTORY: Denies smoking ever cigarettes. No drug or alcohol use. REVIEW OF SYSTEMS: HEENT: Did have a sore throat about a week ago but that has resolved. Strep screens were negative in the hospital back on 06/17/2019. He denies any earing problems, headaches. He does have some difficulties with swallowing and when he coughs, he feels like there is mucus that he cannot get out. Cardiovascular: No chest pain, palpitations, or pedal edema. Respiratory: He is not wheezing. He is not short of breath but he does cough and feels like he has phlegm in his throat. Sometimes he has a hard time swallowing. Sleep History: Denies any sleep apnea. Gastrointestinal: See Chief Complaint. He has vomiting at 4 a.m., nausea throughout the day. His appetite is very poor and his sugars have been very high today. Genitourinary: No dysuria, hematuria, frequency, or burning on urination. We are going to check his urine to check for a urinary tract infection because he states his sister, who is Pillo Downey, states that he has not been urinating well for the last 2 or 3 weeks. Musculoskeletal: No problems moving his arms or legs. He does have an amputated left great toe from osteomyelitis 2017 at [facility]. He had a blister on his foot that got infected. Neurological: No headaches, paralysis, or paresthesias. Endocrine: He has diabetes mellitus type 2. No hypothyroidism. Skin: No sores or boils at this time. PHYSICAL EXAMINATION: VITALS: Height 5 feet 10 inches, stated weight is 153. Vital signs are documented in the chart. HEENT: Pupils are equal, round, and reactive to light and accommodation. Extraocular muscles are intact. Throat is clear. Nose is clear. Tympanic membranes are mayer. NECK: Supple. No jugular venous distention. No hepatojugular reflux. No carotid bruits. Thyroid is smooth. LYMPH NODES: No lymphadenopathy palpated. CARDIOVASCULAR: Regular rate and rhythm without murmurs, clicks, rubs, or gallops. RESPIRATORY: Clear to auscultation. Breath sounds equal bilaterally. ABDOMEN: Soft, nontender on palpation. No rebound or rigidity. EXTREMITIES: The left great toe is amputated. No sores on the feet. No pitting edema. No cyanosis. Joints full. No swelling, no tenderness or deformities. BREASTS: Normal male breasts. RECTAL: Deferred. GENITALIA: Deferred. NEUROLOGIC: Cranial nerves II-XII intact. No gross defects. Sensation normal, strength normal. Deep tendon reflexes equal bilaterally with Babinski negative. MENTAL STATUS: Alert and oriented x3. SKIN: No lesions noted. IMPRESSION: 1. Diabetes mellitus type 2, uncontrolled. 2. Vomiting. Possible gastroparesis. 3. Hyperglycemia. 4. Dehydration. 5. Recently in the hospital for diabetic ketoacidosis 06/15/2019 through 06/17/2019. PLAN: We will go with Levemir 20 units daily. May have to go to b.i.d. depending on how sugars do. We will cover his sugars q.i.d. before meals and at bedtime with NovoLog 1 unit for 20 mg/dL over 180. We will start Reglan IV q.8 h. and Zofran p.r.n. MTDD
[2019-06-27] MEDS: ENOXAPARIN 40 MG/0.4 ML SYR SQ SCH (09:36)
[2019-06-27] MEDS ORDERED: PREGABALIN 50 MG CAPSULE PO SCH (10:00)
[2019-06-27] MEDS ORDERED: ATORVASTATIN 20 MG TABLET PO SCH (10:00)
[2019-06-27] MEDS ORDERED: LEVEMIR FLEXTOUCH 100 UNIT/ML INSULIN PEN SQ SCH ×2 (10:00→22:00)
[2019-06-27] MEDS ORDERED: LISINOPRIL 20 MG TABLET PO SCH (10:00)
[2019-06-27] MEDS ORDERED: 0.9 % SODIUM CHLORIDE 1000ML 1,000 ML IV ONE (13:55)
--- NOTE | 2019-06-27 14:30 | Discharge Note ---
VTE H&P Assessment - Risk for VTE Risk for VTE: Yes Risk Level: Moderate Risk Assessment Date: 06/26/19 Risk Assessment Time: 19:20 VTE Orders Placed or Will Be Placed: Yes Discharge Medications - Discharge Medications Prescriptions: Pregabalin [Lyrica] 50 mg PO BID #60 capsule Metoclopramide HCl [Reglan] 10 mg PO TIDAC #30 tablet Home Medications: Ambulatory Orders Insulin Aspart [Novolog Flexpen] 1 unit SQ TIDINS ml 06/27/19 [Last Taken Unknown] Insulin Aspart [Novolog Flexpen] 5 unit SQ TID 30 Days #1 box 06/27/19 [Last Taken 06/26/19] Insulin Aspart [Novolog Flexpen] 5 unit SQ TIDINS ml 06/27/19 [Last Taken Unknown] Insulin Detemir [Levemir Flextouch] 20 unit SQ BID syringe 06/27/19 [Last Taken Unknown] Metoclopramide HCl [Reglan] 10 mg PO TIDAC #30 tablet 06/27/19 [Last Taken Unknown] Ondansetron HCl [Zofran] 4 mg PO Q6HR #30 tablet 06/27/19 [Last Taken Unknown] Pregabalin [Lyrica] 50 mg PO BID #60 capsule 06/27/19 [Last Taken Unknown] Pregabalin [Lyrica] 50 mg PO BID 30 Days #90 cap 06/27/19 [Last Taken 06/14/19] Discharge Note - Date Date of Discharge Note: 06/27/19 Disposition: Home, Self-Care Condition: (1) Good Additional Instructions: follow up with Dr. Laquita Silva in 2 to 7 days please set up GI consult as an outpatient visit for possible gastroparesis reglan three times a day zofran 4 mg every 6 hours as needed for nausea continue insulin levemir 20 units twice aday also continue novolog 5-10 units for meals and than add the coverage of one unit for 25 mg/dl over 200 Prescriptions: Ondansetron HCl [Zofran] 4 mg PO Q6HR #30 tablet Pregabalin [Lyrica] 50 mg PO BID #60 capsule Metoclopramide HCl [Reglan] 10 mg PO TIDAC #30 tablet Referrals: Erika Brown, N.P. [Primary Care Provider] - Activity at Discharge: Increase Activity as Tolerated Diet at Discharge: Diabetic Diet
[2019-06-27] MEDS ORDERED: METOCLOPRAMIDE 10 MG TABLET PO SCH (17:00)
[2019-06-27] MEDS ORDERED: NOVOLOG FLEXPEN (INSULIN ASPART) 100 UNITS/ML SQ SCH (17:15)
--- NOTE | 2019-06-29 10:40 | Discharge Summary ---
DATE: DISCHARGE DIAGNOSES: 1. Diabetes mellitus, uncontrolled. 2. Gastroparesis. 3. Vomiting. 4. Dehydration. 5. Recent hospitalization for diabetic ketoacidosis on 06/15/2019 through 06/17/2019. ATTENDING PHYSICIAN: Hank Workman DO REASON FOR HOSPITALIZATION: Vomiting, hyperglycemia, nausea, and cough. This patient is a known brittle diabetic with insulin use. He states that he has been discharged from [facility] for an episode of DKA on 06/17/2019. He was treated with an insulin drip and fluids at that time. He stated he has not really been feeling well since that time. He vomited last night at 4 a.m. and went to the doctor today. Erika Brown saw him, was concerned about the high sugars and his difficulties with eating. They sent him to the hospital for a direct admission. The patient stated he has been vomiting, nauseated but his last episode of vomiting was at 4 a.m. He has not been eating very well for the last 2 or 3 days. His weight has gone down. The patient did take 20 units of Levemir insulin this morning at 8 a.m. He took 18 units of NovoLog. He has not had anything else throughout the day and he has not eaten anything throughout the day. His sugar when he came in here was 133. However, it was higher this morning, he said around 400 in the morning when he got up and in Erika Brown's office was in the 200s. Acetone was negative upon arrival to the hospital and his electrolytes were good. Lactic acid was normal. Sodium was in the normal range. His white count was 8500, hemoglobin 9.8, potassium 4.1, sodium 137, chloride 101, BUN 12, creatinine 0.9, acetone was negative, urine was negative. Chest x-ray, normal chest. EKG, normal sinus rhythm, no acute changes. The patient was given IV fluids, a liter of fluids, and then 100 mL/hour through the night. Jony. Covered his sugar with NovoLog. He was feeling much better the next morning, eating, drinking, and he had 3 bowel movements throughout the night, feeling much better. At this point, I felt he safely can go home for further care at home. Started the Reglan, seemed to help a lot. We will continue with oral Reglan 10 mg 3 times a day and GI consult as an outpatient for further evaluation of possible gastroparesis. HOSPITAL COURSE: Much improved. CONDITION ON DISCHARGE: Much improved. DISCHARGE INSTRUCTIONS: Follow up with Erika Brown in 2-7 days. Follow up with GI as scheduled as an outpatient. Continue his home medications. He said he would like to go back on the Lyrica twice a day, 50 mg, Levemir 20 units b.i.d. 8 a.m. and 8 p.m., ferrous sulfate 325 t.i.d., atorvastatin 20 mg daily, lisinopril 20 mg daily, NovoLog use 5-10 units before every meal and 5 units for a snack and cover the scale also with 1 unit of NovoLog for every 25 mg over 200. Reglan 10 mg 3 times a day, Zofran 4 mg q.6 h. p.r.n. nausea. MTDD
== END 2019-06-27 16:20 | disposition home or self-care (01) ==
LOC: MEDSURG 13:02 → INTOOBSV 13:02
PROVIDERS: ADMIT Emergency Medicine; ATTEND Emergency Medicine
DX: E11.40 Type 2 diabetes mellitus with diabetic neuropathy, unspecified (principal); G57.93 Unspecified mononeuropathy of bilateral lower limbs; Z79.4 Long term (current) use of insulin; R11.2 Nausea with vomiting, unspecified; R73.9 Hyperglycemia, unspecified; R05 Cough; E78.00 Pure hypercholesterolemia, unspecified; D64.9 Anemia, unspecified; G62.9 Polyneuropathy, unspecified
CPT/HCPCS: 83605; 83735; 82800; 85025; 80076; 80048 ×2; 36416 ×2; 82009; 82948 ×2; 81003; 80305; 71046; 93005; 93010; G0378 ×2; J1815; J3490; 99217; 99220; J1650; J2765; J7030

== ENCOUNTER 2019-08-03 07:15 | Day surgery (SDC) | payer MEDICARE ==
[2019-08-03] MEDS ORDERED: LIDOCAINE 2% MDV (20MG/ML) 20ML VIAL IV ONE (07:16)
[2019-08-03] MEDS ORDERED: PROPOFOL 10 MG/ML VIAL IV ONE (07:16)
[2019-08-03] MEDS ORDERED: FENTANYL PF 100MCG/2ML VIAL IV ONE (07:16)
--- NOTE | 2019-08-07 09:11 | Operative Note ---
SURGEON: Ron Savage MD OPERATION: ESOPHAGOGASTRODUODENOSCOPY. INDICATIONS: This is a 59-year-old male with history of nausea, vomiting, and dysphagia who presented for esophagogastroduodenoscopy. POSTOPERATIVE DIAGNOSES: 1. LA class B esophagitis. 2. Mild gastritis. 3. Normal duodenum. ANESTHESIA: Sedation is per Anesthesia. Pulse oximetry was monitored throughout the procedure to maintain O2 saturation of 90% or greater. Supplemental oxygen was administered via nasal cannula. Cardiac and vital signs were monitored throughout the duration of the procedure, and they were stable. The procedure of esophagogastroduodenoscopy and risks and benefits of the procedure, including the risk of bleeding and perforation, among others, were explained to the patient who voiced understanding and agreed to have the procedure done. Physical examination was performed, and the patient was found stable for sedation. PROCEDURE: The patient was placed in the left lateral position. Sedation was initiated. A plastic bite block was inserted into the oral cavity. The Olympus [id number] gastroscope was introduced into the oral cavity and advanced to the proximal esophagus without difficulty. The esophageal mucosa was carefully examined upon introduction of the gastroscope. The proximal and mid esophageal mucosa appeared normal. In the distal esophagus there was LA class B esophagitis with no strictures noted. The gastroscope was then advanced into the stomach, and surveillance of the stomach revealed diffuse erythema along the gastric body and antrum but no ulcers were noted. The gastroscope was then advanced to the descending duodenum without difficulty. The duodenal bulb and descending duodenum appeared normal. The gastroscope was then withdrawn into the stomach and retroflexion was performed. There were no other lesions noted. The gastroscope was then straightened and withdrawn while carefully examining the gastric and esophageal mucosa. No other lesions noted. Multiple gastric and distal esophageal biopsies were obtained. The patient remained with stable vital signs. A lubricated Gray dilator size 16-Chinese was then passed into the stomach with mild resistance. The Gray dilator was then withdrawn and the procedure was terminated. The patient tolerated procedure well without any immediate complications. He remained with stable vital signs and was transferred to the recovery room. RECOMMENDATIONS: 1. The patient is to continue on proton pump inhibitors. 2. I will see him back in the office as needed. Thank you for allowing me to participate in the care of your patient. RONAN
== END 2019-08-03 09:21 | disposition home or self-care (01) ==
LOC: HOP 07:15
PROVIDERS: ATTEND Internal Medicine Gastroenterology
DX: K20.8 Other esophagitis (principal); K25.7 Chronic gastric ulcer without hemorrhage or perforation; R13.10 Dysphagia, unspecified; R11.2 Nausea with vomiting, unspecified; I10 Essential (primary) hypertension; E11.9 Type 2 diabetes mellitus without complications; E78.00 Pure hypercholesterolemia, unspecified